=== PATIENT | male | born 1960 | race Caucasian/White ===

== ENCOUNTER 2016-06-18 07:35 | Emergency (ER) | payer OTHER ==
[~2016-06-18] VITALS: Ht 180.3 cm; Wt 105.0 kg
[~2016-06-18 07:35] MED LIST: ASPI325T PO; LISI-360 PO; PRAD150C PO; TOPR50TA PO
[2016-06-18 07:39] VITALS: BP 208/103; PULSE 82; RESP 16; TEMP 98; O2SAT 95
[2016-06-18] MEDS ORDERED: ASPI325T PO (07:48)
[2016-06-18] MEDS ORDERED: LOSA50TA PO (07:48)
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
[2016-06-18] MEDS ORDERED: cloNIDine HCL 0.2 MG TAB PO ONE (08:15)
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
[2016-06-18 08:55] VITALS: BP 147/69; PULSE 72; RESP 14; O2SAT 97
== END 2016-06-18 10:10 | disposition home or self-care (01) ==
LOC: NEPE 07:35
DX: S16.1XXA Strain of muscle, fascia and tendon at neck level, initial encounter (principal); S09.90XA Unspecified injury of head, initial encounter; I10 Essential (primary) hypertension; E78.00 Pure hypercholesterolemia, unspecified; Z87.39 Personal history of other diseases of the musculoskeletal system and connective tissue; Z86.79 Personal history of other diseases of the circulatory system; V89.2XXA Person injured in unspecified motor-vehicle accident, traffic, initial encounter
CPT/HCPCS: 72040; 99284; L0150

== ENCOUNTER 2017-02-03 17:08 | Inpatient (IN) | payer OTHER ==
[~2017-02-03] VITALS: Ht 182.9 cm; Wt 101.0 kg
[2017-02-03] VITALS (8 sets, daily range): BP systolic 140–205; BP diastolic 74–126; PULSE 76–140; RESP 18–22; TEMP 98.1–99.4; O2SAT 96–99
[~2017-02-03 17:08] MED LIST changes: -LISI-360 PO; +LOSA50TA PO; -PRAD150C PO; -TOPR50TA PO
[2017-02-03 17:42] LABS: AUTOMATED NEUTROPHIL # 4.8 TH/MM3 (1.8-7.7); BASOPHIL % 0.7 % (0.0-2.0); EOSINOPHIL # 0.1 TH/MM3 (0-0.4); EOSINOPHIL % 1.1 % (0.0-4.0); HEMATOCRIT 46.9 % (39.0-51.0); LYMPH % 20.8 % (9.0-44.0); LYMPHOCYTE # 1.5 TH/MM3 (1.0-4.8); MEAN CELL VOLUME 91.5 FL (80.0-100.0); MEAN CORPUSCULAR HGB CONC 36.1 % (32.0-36.0); MONO % 9.7 % (0.0-8.0); NEUT % 67.7 % (16.0-70.0); PLATELET COUNT 205 TH/MM3 (150-450); RED BLOOD COUNT 5.12 MIL/MM3 (4.50-5.90); RED CELL DISTRIBUTION WIDTH 13.2 % (11.6-17.2)
[2017-02-03] MEDS ORDERED: SODIUM CHLOR 0.9% 1000 ML INJ 1,000 ML IV SCH (17:42)
[2017-02-03 17:43] LABS: HEMO FLAGS DIFF FINAL
[2017-02-03] MEDS ORDERED: DILTIAZEM HCL 25 MG/5 ML VIAL IV ONE ×2 (17:45→18:30)
[2017-02-03] MEDS ORDERED: AMLO10TA2 PO (18:00)
[2017-02-03] MEDS ORDERED: DILTIAZEM INJ 125 MG in SODIUM CHLORIDE 0.9% INJ 100 ML IV PRN (18:00)
[2017-02-03 18:07] LABS: ANION GAP 6 MEQ/L (5-15); BICARBONATE 27.6 MEQ/L (21.0-32.0); BLOOD UREA NITROGEN 17 MG/DL (7-18); CHLORIDE 103 MEQ/L (98-107); GLOMERULAR FILTRATION RATE 85 ML/MIN (>89); POTASSIUM 3.9 MEQ/L (3.5-5.1); SODIUM (NA) 137 MEQ/L (136-145)
--- NOTE | 2017-02-03 18:19 | PD ---
HPI Chief Complaint: Cardiac Complaint Time Seen by Provider: 17:42 Travel History International Travel<30 days: No Contact w/Intl Traveler<30days: No Traveled to known affect area: No History of Present Illness HPI 56-year-old male that presents to the ED for evaluation of palpitations. Patient states that he has a history of atrial flutter and atrial fibrillation having had an ablation [address] Hernandez. Patient reports that today his been working outside a lot making a shed and she started to notice that he was having palpitations as well as feeling like his heart was racing. Per patient he does not feel anxious or has any pain. Per patient he does feel somewhat short of breath with exertion as well as a slight headache. He denies any history of heart disease other than the atrial fibrillation. 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 he follows up with. He denies any recent travel. Per patient his been outside all day and his been trying to keep hydrated but he believes that he might have gotten dehydrated. He does have a history of hypertension and takes amiodarone as well as losartan. Has no allergies to medication. Other medical issues. PFSH Past Medical History Atrial Fibrillation: Yes Blood Disorders: No Anxiety: No Depression: No Heart Rhythm Problems: Yes Cancer: No Cardiovascular Problems: Yes (ARRHYTHMIA) High Cholesterol: Yes Chemotherapy: No Chest Pain: No Congestive Heart Failure: No Diabetes: No Diminished Hearing: No Hypertension: Yes Immune Disorder: No Implanted Vascular Access Dvce: Yes Musculoskeletal: Yes Psychiatric: No Respiratory: No Past Surgical History Body Medical Devices: SCREWS IN KNEE Cardiac Surgery: Yes (ablation) Tonsillectomy: Yes Other Surgery: Yes Social History Alcohol Use: Yes (occasional) Tobacco Use: No Substance Use: No Allergies-Medications (Allergen,Severity, Reaction): Coded Allergies: No Known Allergies (Verified , 02/03/17) Reported Meds & Prescriptions Reported Meds & Active Scripts Active Reported Amlodipine (Amlodipine Besylate) 10 Mg Tab 10 Mg PO DAILY Aspirin 325 Mg Tab 325 Mg PO DAILY Losartan (Losartan Potassium) 50 Mg Tab 50 Mg PO DAILY Review of Systems Except as stated in HPI: all other systems reviewed are Neg Physical Exam Narrative GENERAL: SKIN: Warm and dry. HEAD: Atraumatic. Normocephalic. EYES: Pupils equal and round. No scleral icterus. No injection or drainage. ENT: No nasal bleeding or discharge. Mucous membranes pink and moist. Tongue is midline. No uvula deviation. NECK: Trachea midline. No JVD. CARDIOVASCULAR: Irregular rate and rhythm. No murmurs, S3, S4. RESPIRATORY: No accessory muscle use. Clear to auscultation. Breath sounds equal bilaterally. GASTROINTESTINAL: Abdomen soft, non-tender, nondistended. Hepatic and splenic margins not palpable. MUSCULOSKELETAL: Extremities without clubbing, cyanosis, or edema. No obvious deformities. Full range of motion of the upper and lower extremities bilaterally. 2+ pulses bilaterally. NEUROLOGICAL: Awake and alert. No obvious cranial nerve deficits. Motor grossly within normal limits. Five out of 5 muscle strength in the arms and legs. Normal speech. PSYCHIATRIC: Appropriate mood and affect; insight and judgment normal. Data Data Last Documented VS Vital Signs Date Time Temp Pulse Resp B/P (MAP) Pulse Ox O2 Delivery O2 Flow Rate FiO2 02/03/17 18:38 130 146/81 02/03/17 17:11 99.4 22 97 Orders Orders Electrocardiogram (02/03/17 17:11) Complete Blood Count With Diff (02/03/17 17:11) Basic Metabolic Panel (Bmp) (02/03/17 17:11) Ckmb (Isoenzyme) Profile (02/03/17 17:11) Troponin I (02/03/17 17:11) Diltiazem Inj (Cardizem Inj) (02/03/17 17:45) Sodium Chlor 0.9% 1000 Ml Inj (Ns 1000 M (02/03/17 17:42) Vital Signs (Adult) Q15MX4,Q4H (02/03/17 17:59) Pepper Cutter / Telemetry JAMAAL.Q8H (02/03/17 17:59) Cardiac Rhythm JAMAAL.Q8H (02/03/17 17:59) Notify Dr: Other (02/03/17 17:59) Diltiazem Inj (Cardizem Inj) (02/03/17 18:00) CKMB (02/03/17 17:20) CKMB% (02/03/17 17:20) Diltiazem Inj (Cardizem Inj) (02/03/17 18:30) Admit Order (Ed Use Only) (02/03/17 19:05) Consult Cardiology (02/03/17 ) Labs Laboratory Tests Test 02/03/17 17:20 White Blood Count 7.0 TH/MM3 Red Blood Count 5.12 MIL/MM3 Hemoglobin 16.9 GM/DL Hematocrit 46.9 % Mean Corpuscular Volume 91.5 FL Mean Corpuscular Hemoglobin 33.0 PG Mean Corpuscular Hemoglobin Concent 36.1 % Red Cell Distribution Width 13.2 % Platelet Count 205 TH/MM3 Mean Platelet Volume 9.3 FL Neutrophils (%) (Auto) 67.7 % Lymphocytes (%) (Auto) 20.8 % Monocytes (%) (Auto) 9.7 % Eosinophils (%) (Auto) 1.1 % Basophils (%) (Auto) 0.7 % Neutrophils # (Auto) 4.8 TH/MM3 Lymphocytes # (Auto) 1.5 TH/MM3 Monocytes # (Auto) 0.7 TH/MM3 Eosinophils # (Auto) 0.1 TH/MM3 Basophils # (Auto) 0.0 TH/MM3 CBC Comment DIFF FINAL Differential Comment Blood Urea Nitrogen 17 MG/DL Creatinine 0.92 MG/DL Random Glucose 128 MG/DL Calcium Level 8.9 MG/DL Sodium Level 137 MEQ/L Potassium Level 3.9 MEQ/L Chloride Level 103 MEQ/L Carbon Dioxide Level 27.6 MEQ/L Anion Gap 6 MEQ/L Estimat Glomerular Filtration Rate 85 ML/MIN Total Creatine Kinase 131 U/L Creatine Kinase MB 1.5 NG/ML Troponin I LESS THAN 0.02 NG/ML MDM Medical Decision Making Medical Screen Exam Complete: Yes Emergency Medical Condition: Yes Medical Record Reviewed: Yes Interpretation(s) EKG shows atrophy fibrillation in RVR read by me and attending. CBC & BMP Diagram 02/03/17 17:20 Calcium Level 8.9 Troponin and CK-MB negative. Differential Diagnosis atrial flutter versus atrial fibrillation versus tachycardia versus arrhythmia versus normal exam Narrative Course 56-year-old male that presents to the ED for evaluation of irregular heart rate. Patient was properly examined and was found to have signs and symptoms consistent appears to be atrial flutter as well as atrial fibrillation. Initially patient was very tachycardic in the 130s and 140s and 150s. He appeared to be more in atrial fibrillation. Patient was given 1 bolus of Cardizem and did stabilize his atrial fibrillation now staying in the 130s. No he appears to be in atrial flutter but his heart rate still very tachycardic. I discussed the case in my attending Dr. Barkley who is in agreement with plan. Cardizem drip was started. Patient was given IV. Labs showed no sign of acute disease. Patient will be admitted to for health care. Case was discussed with Dr. Brasher who agrees with admission to the [facility]. Procedures EKG Prior to Arrival: No Diagnosis Primary Impression: Atrial fibrillation with RVR Admitting Information Admitting Physician Requests: Admit Mango Hernandez Feb 03, 2017 18:19
[2017-02-03 18:23] LABS: CREATINE KINASE 131 U/L (39-308)
[2017-02-03 18:35] LABS: CKMB 1.5 NG/ML (0.5-3.6)
--- NOTE | 2017-02-03 19:35 | HHI.HP ---
HPI Service [facility] Hospitalists Primary Care Physician Itz Gonzalez, DO Admission Diagnosis atrial fibrillation in RVR Chief Complaint: rapid heart rate today after exertion Travel History International Travel<30 Days: No Contact w/Intl Traveler <30 Da: No Traveled to Known Affected Are: No History of Present Illness 56-year-old male that presents to the ED for evaluation of palpitations. Patient states that he has a history of atrial flutter and atrial fibrillation having had an ablation [address] Hernandez. Patient reports that today his been working outside a lot making a shed and she started to notice that he was having palpitations as well as feeling like his heart was racing. Per patient he does not feel anxious or has any pain. Per patient he does feel somewhat short of breath with exertion as well as a slight headache. He denies any history of heart disease other than the atrial fibrillation. Patient follows with [facility] cardiology. He denies any recent travel. Per patient his been outside all day and his been trying to keep hydrated but he believes that he might have gotten dehydrated. He does have a history of hypertension and takes amlodipine as well as losartan. Has no allergies to medication. In er found to be in rapid atrail fib started on IV cardiazem bolus and drip . [facility] Review of Systems Cardiovascular: COMPLAINS OF: Palpitations Past Family Social History Past Medical History hypertension,a fib,?lipid Past Surgical History knee, ablation Reported Medications losartan 100,amliodine 10 and was on asa 325 takes maybe once twice week Allergies: Coded Allergies: No Known Allergies (Verified , 02/03/17) Social History drinks beer and vodka on weekends Physical Exam Vital Signs Vital Signs Date Time Temp Pulse Resp B/P (MAP) Pulse Ox O2 Delivery O2 Flow Rate FiO2 02/03/17 18:38 130 146/81 02/03/17 17:11 99.4 140 22 189/118 (141) 97 Physical Exam GENERAL: This is a well-nourished, well-developed patient, in no apparent distress. SKIN: No rashes, ecchymoses or lesions. Cool and dry. HEAD: Atraumatic. Normocephalic. No temporal or scalp tenderness. EYES: Pupils equal round and reactive. Extraocular motions intact. No scleral icterus. No injection or drainage. ENT: Nose without bleeding, purulent drainage or septal hematoma. Throat without erythema, tonsillar hypertrophy or exudate. Uvula midline. Airway patent. NECK: Trachea midline. No JVD or lymphadenopathy. Supple, nontender, no meningeal signs. CARDIOVASCULAR:IRREG rate and rhythm without murmurs, gallops, or rubs. RESPIRATORY: Clear to auscultation. Breath sounds equal bilaterally. No wheezes , rales, or rhonchi. GASTROINTESTINAL: Abdomen soft, non-tender, nondistended. No hepato-splenomegaly , or palpable masses. No guarding. MUSCULOSKELETAL: Extremities without clubbing, cyanosis, or edema. No joint tenderness, effusion, or edema noted. No calf tenderness. Negative Homans sign bilaterally. NEUROLOGICAL: Awake and alert. Cranial nerves II through XII intact. Motor and sensory grossly within normal limits. Five out of 5 muscle strength in all muscle groups. Normal speech. Laboratory Laboratory Tests Test 02/03/17 17:20 White Blood Count 7.0 Red Blood Count 5.12 Hemoglobin 16.9 Hematocrit 46.9 Mean Corpuscular Volume 91.5 Mean Corpuscular Hemoglobin 33.0 Mean Corpuscular Hemoglobin Concent 36.1 Red Cell Distribution Width 13.2 Platelet Count 205 Mean Platelet Volume 9.3 Neutrophils (%) (Auto) 67.7 Lymphocytes (%) (Auto) 20.8 Monocytes (%) (Auto) 9.7 Eosinophils (%) (Auto) 1.1 Basophils (%) (Auto) 0.7 Neutrophils # (Auto) 4.8 Lymphocytes # (Auto) 1.5 Monocytes # (Auto) 0.7 Eosinophils # (Auto) 0.1 Basophils # (Auto) 0.0 CBC Comment DIFF FINAL Differential Comment Blood Urea Nitrogen 17 Creatinine 0.92 Random Glucose 128 Calcium Level 8.9 Sodium Level 137 Potassium Level 3.9 Chloride Level 103 Carbon Dioxide Level 27.6 Anion Gap 6 Estimat Glomerular Filtration Rate 85 Total Creatine Kinase 131 Creatine Kinase MB 1.5 Troponin I LESS THAN 0.02 Result Diagram: 02/03/17 1720 02/03/17 1720 Course ekg rapid atrail fib started on cardiazem bolus and drip Caprini VTE Risk Assessment Caprini VTE Risk Assessment: Mod/High Risk (score >= 2) Caprini Risk Assessment Model Point Value = 1 Point Value = 2 Point Value = 3 Point Value = 5 Age 41-60 Minor surgery BMI > 25 kg/m2 Swollen legs Varicose veins or History of unexplained or recurrent spontaneous Oral contraceptives or hormone replacement Sepsis (< 1 month) Serious lung disease, including pneumonia (< 1 month) Abnormal pulmonary function Acute myocardial infarction Congestive heart failure (< 1 month) History of inflammatory bowel disease Medical patient at bed rest Age 61-74 Arthroscopic surgery Major open surgery (> 45 min) Laparoscopic surgery (> 45 min) Malignancy Confined to bed (> 72 hours) Immobilizing plaster cast Central venous access Age >= 75 History of VTE Family history of VTE Factor V Leiden Prothrombin [id number] Lupus anticoagulant Anticardiolipin antibodies Elevated serum homocysteine Heparin-induced thrombocytopenia Other congenital or acquired thrombophilia Stroke (< 1 month) Elective arthroplasty Hip, pelvis, or leg fracture Acute spinal cord injury (< 1 month) Prophylaxis Regimen Total Risk Factor Score Risk Level Prophylaxis Regimen 0-1 Low Early ambulation 2 Moderate Order ONE of the following: *Sequential Compression Device (SCD) *Heparin 5000 units SQ BID 3-4 Higher Order ONE of the following medications: *Heparin 5000 units SQ TID *Enoxaparin/Lovenox 40 mg SQ daily (WT < 150 kg, CrCl > 30 mL/min) *Enoxaparin/Lovenox 30 mg SQ daily (WT < 150 kg, CrCl > 10-29 mL/min) *Enoxaparin/Lovenox 30 mg SQ BID (WT < 150 kg, CrCl > 30 mL/min) AND/OR *Sequential Compression Device (SCD) 5 or more Highest Order ONE of the following medications: *Heparin 5000 units SQ TID (Preferred with Epidurals) *Enoxaparin/Lovenox 40 mg SQ daily (WT < 150 kg, CrCl > 30 mL/min) *Enoxaparin/Lovenox 30 mg SQ daily (WT < 150 kg, CrCl > 10-29 mL/min) *Enoxaparin/Lovenox 30 mg SQ BID (WT < 150 kg, CrCl > 30 mL/min) AND *Sequential Compression Device (SCD) Assessment and Plan Problem List: (1) Atrial fibrillation with RVR ICD Codes: I48.91 - Unspecified atrial fibrillation Status: Acute Plan: cardiazem bolus and drip to cic consult cardiology (2) Hypertension ICD Codes: I10 - Essential (primary) hypertension Status: Chronic Plan: continue losartan and amlodipine Assessment and Plan further plan as case develops ,for now continue full asa Code Status full Discussed Condition With patient Physician Certification 2 Midnight Certification Type: Admission for Inpatient Services Order for Inpatient Services The services are ordered in accordance with Medicare regulations or non- Medicare payer requirements, as applicable. In the case of services not specified as inpatient-only, they are appropriately provided as inpatient services in accordance with the 2-midnight benchmark. Estimated LOS (days): 3 3 days is the estimated time the patient will need to remain in the hospital, assuming treatment plan goals are met and no additional complications. Post-Hospital Plan: Home Problem Qualifiers (1) Hypertension: Qualified Codes: I10 - Essential (primary) hypertension Ryan Brasher MD Feb 03, 2017 19:35
[2017-02-03] MEDS ORDERED: BISACODYL 10 MG SUPP RECTAL PRN (19:45)
[2017-02-03] MEDS ORDERED: SODIUM CHLORIDE 0.9% FLUSH 10 ML FLUSH IV FLUSH PRN (19:45)
[2017-02-03] MEDS ORDERED: SENNOSIDES 8.6 MG TAB PO PRN (19:45)
[2017-02-03] MEDS ORDERED: MAGNESIUM HYDROXIDE SUSP 30 ML CUP PO PRN (19:45)
[2017-02-03] MEDS ORDERED: TEMAZEPAM 15 MG CAP PO PRN (19:45)
[2017-02-03] MEDS ORDERED: LACTULOSE SYRUP 20 GM/30 ML CUP PO PRN (19:45)
[2017-02-03] MEDS ORDERED: NALOXONE HCL 0.4 MG/ML AMP IV PUSH PRN (19:45)
[2017-02-03] MEDS: LORazepam 0.5 MG TAB PO PRN (20:40)
[2017-02-03] MEDS ORDERED: testosterone TOPICAL (20:51)
[2017-02-03] MEDS ORDERED: ENALAPRILAT 1.25 MG/ML VIAL IV PUSH PRN (22:00)
[2017-02-03] MEDS ORDERED: DIGOXIN 0.5 MG/2 ML VIAL IV PUSH ONE (22:00)
[2017-02-03] MEDS: SODIUM CHLORIDE 0.9% FLUSH 10 ML FLUSH IV FLUSH SCH (22:18)
[2017-02-03] MEDS: ENOXAPARIN SODIUM 40 MG/0.4 ML SYRINGE SQ SCH (22:19)
[2017-02-03] MEDS: DOCUSATE SODIUM 50 MG/SENNA 8.6 MG TAB PO SCH (22:19)
--- NOTE | 2017-02-03 22:22 | RADRPT ---
EXAM DATE/TIME: 02/03/2017 22:09 [facility] COMPARISON: No previous studies available for comparison. INDICATIONS : Hypertension MEDICAL HISTORY : Hypertension. SURGICAL HISTORY : Cardiac ablation ENCOUNTER: Initial ACUITY: 1 day PAIN SCORE: 0/10 LOCATION: chest FINDINGS: A single view of the chest demonstrates the lungs to be symmetrically aerated without evidence of mas s, infiltrate or effusion. The cardiomediastinal contours are unremarkable. Osseous structures are intact. CONCLUSION: No acute disease. Itz Emerson MD on February 03, 2017 at 22:19 Board Certified Radiologist. This report was verified electronically.
[2017-02-03] MEDS ORDERED: LORazepam 2 MG/ML VIAL IV PUSH ONE (23:30)
[2017-02-04] VITALS (24 sets, daily range): BP systolic 123–160; BP diastolic 73–102; PULSE 77–112; RESP 16–18; TEMP 98.1–98.6; O2SAT 95–98
[2017-02-04 07:01] LABS: AUTOMATED NEUTROPHIL # 2.3 TH/MM3 (1.8-7.7); BASOPHIL % 0.6 % (0.0-2.0); EOSINOPHIL # 0.1 TH/MM3 (0-0.4); EOSINOPHIL % 1.8 % (0.0-4.0); HEMATOCRIT 45.1 % (39.0-51.0); HEMO FLAGS DIFF FINAL; LYMPH % 31.3 % (9.0-44.0); LYMPHOCYTE # 1.4 TH/MM3 (1.0-4.8); MEAN CELL VOLUME 92.2 FL (80.0-100.0); MEAN CORPUSCULAR HEMOGLOBIN 31.6 PG (27.0-34.0); MEAN CORPUSCULAR HGB CONC 34.3 % (32.0-36.0); MONO % 13.7 % (0.0-8.0); NEUT % 52.6 % (16.0-70.0); PLATELET COUNT 194 TH/MM3 (150-450); RED CELL DISTRIBUTION WIDTH 12.8 % (11.6-17.2); WHITE BLOOD COUNT 4.4 TH/MM3 (4.0-11.0)
[2017-02-04 07:34] LABS: ALT (GPT) 25 U/L (12-78); ANION GAP 8 MEQ/L (5-15); AST (GOT) 17 U/L (15-37); BICARBONATE 25.6 MEQ/L (21.0-32.0); BLOOD UREA NITROGEN 14 MG/DL (7-18); CHLORIDE 105 MEQ/L (98-107); GLOMERULAR FILTRATION RATE 131 ML/MIN (>89); POTASSIUM 3.5 MEQ/L (3.5-5.1); SODIUM (NA) 139 MEQ/L (136-145)
[2017-02-04 07:37] LABS: ALKALINE PHOSPHATASE 66 U/L (45-117); TOTAL BILIRUBIN ADULT 0.6 MG/DL (0.2-1.0)
--- NOTE | 2017-02-04 08:17 | PD.CONS ---
HPI Service CV Consult Requested By Reason for Consult a-fib Primary Care Physician Itz Gonzalez, DO History of Present Illness Here with h/o a-fib s/p ablation 2010. He was admitted for palpitations and tachycardia that started while working outside for 3.5 hours. He believes he may have been dehydrated. He has not had any further a-fib until yesterday. He says in the past he was sent for ablation because heart rate control medications lowered his blood pressure. He denies any chest pain or shortness of breath (Garcia Bush) Review of Systems Consitutional: DENIES: Fatigue, Fever, Chills, Weight gain, Weight loss Eyes: DENIES: Amaurosis Fugax, Change in vision Respiratory: DENIES: See HPI, Cough, Snoring, Shortness of breath, Wheezing, Sputum production Cardiovascular: COMPLAINS OF: Palpitations Gastrointestinal: DENIES: Nausea, Vomiting, Change in bowel habits, Reflux, Bloody stools, Melena Genitourinary: DENIES: Urinary incontinence, Difficulty voiding Integumentary: DENIES: Rash Neurologic: DENIES: Tingling or numbness, Memory problems, Poor Balance, Stroke symptoms Musculoskeletal: DENIES: Joint pain, Muscle pain, Limited range of motion, Back pain Psychiatric: DENIES: Anxiety, Depression, Sleep disturbances Hematologic: DENIES: Bruising tendencies, Bleeding tendencies Endocrine: DENIES: Weight gain, Weight loss, Thyroid disease (Garcia Bush ) Past Family Social History Allergies: Coded Allergies: No Known Allergies (Verified , 02/03/17) Past Medical History hypertension a fib Past Surgical History knee surgery ablation Reported Medications Reported Meds & Active Scripts Active Reported [testosterone] TOPICAL DAILY Amlodipine (Amlodipine Besylate) 10 Mg Tab 10 Mg PO DAILY Aspirin 325 Mg Tab 325 Mg PO DAILY Losartan (Losartan Potassium) 50 Mg Tab 50 Mg PO DAILY Active Ordered Medications Current Medications Medications (Trade) Dose Ordered Sig/Darryl Route Start Time Stop Time Status Last Admin Diltiazem HCl 125 mg/Sodium Chloride 125 ml @ 5 mls/hr TITRATE PRN IV 02/03/17 18:00 02/03/17 18:38 (Norvasc) 10 mg DAILY PO 02/04/17 09:00 (Aspirin) 325 mg DAILY PO 02/04/17 09:00 (Cozaar) 50 mg DAILY PO 02/04/17 09:00 (NS Flush) 2 ml UNSCH PRN IV FLUSH 02/03/17 19:45 (NS Flush) 2 ml BID IV FLUSH 02/03/17 21:00 02/03/17 22:18 (Tylenol) 650 mg Q4H PRN PO 02/03/17 19:45 (Restoril) 15 mg HS PRN PO 02/03/17 19:45 (Lovenox Inj) 40 mg Q24H SQ 02/03/17 21:00 02/03/17 22:19 (Narcan Inj) 0.4 mg UNSCH PRN IV PUSH 02/03/17 19:45 (Nesha-Colace) 1 tab BID PO 02/03/17 21:00 02/03/17 22:19 (Milk Of Magnesia Liq) 30 ml Q12H PRN PO 02/03/17 19:45 (Senokot) 17.2 mg Q12H PRN PO 02/03/17 19:45 (Dulcolax Supp) 10 mg DAILY PRN RECTAL 02/03/17 19:45 (Lactulose Liq) 30 ml DAILY PRN PO 02/03/17 19:45 (Ativan) 0.5 mg Q12H PRN PO 02/03/17 19:45 02/03/17 20:40 (Vasotec Inj) 1.25 mg Q6H PRN IV PUSH 02/03/17 22:00 02/03/17 22:18 (Pneumovax-23 Inj) 25 mcg ONCE ONCE IM 02/05/17 10:00 02/05/17 10:01 Family History noncontributory Social History Occasion EtOH denies smoking denies substance abuse (Garcia Bush) Physical Exam Vital Signs Vital Signs Date Time Temp Pulse Resp B/P (MAP) Pulse Ox O2 Delivery O2 Flow Rate FiO2 02/04/17 06:07 96 02/04/17 03:33 98.6 82 18 129/77 (94) 97 02/04/17 03:00 82 02/04/17 02:00 77 02/04/17 01:00 88 02/04/17 00:00 82 02/03/17 23:59 98.4 97 18 140/74 (96) 96 02/03/17 23:59 135 02/03/17 23:00 76 02/03/17 21:00 130 02/03/17 20:48 02/03/17 20:31 132 18 154/98 (116) 96 Room Air 02/03/17 20:10 133 18 166/105 (125) 99 Room Air 02/03/17 19:25 136 18 205/126 (152) 98 Room Air 02/03/17 18:38 130 146/81 02/03/17 17:11 99.4 140 22 189/118 (141) 97 02/03/17 09:30 98.1 131 18 161/101 (121) 96 02/03/17 09:30 131 Physical Exam GENERAL: Well-nourished, well-developed patient in no apparent distress. NECK: No JVD. No carotid bruit. CARDIOVASCULAR: IR IR S1/S2 no murmur, rub, or gallop. RESPIRATORY: No accessory muscle use. Clear to auscultation. Breath sounds equal bilaterally. GASTROINTESTINAL: Abdomen soft, non-tender, nondistended. MUSCULOSKELETAL: Extremities without clubbing, cyanosis, or edema. Laboratory Laboratory Tests Test 02/03/17 17:20 02/04/17 04:52 White Blood Count 7.0 4.4 Red Blood Count 5.12 4.90 Hemoglobin 16.9 15.5 Hematocrit 46.9 45.1 Mean Corpuscular Volume 91.5 92.2 Mean Corpuscular Hemoglobin 33.0 31.6 Mean Corpuscular Hemoglobin Concent 36.1 34.3 Red Cell Distribution Width 13.2 12.8 Platelet Count 205 194 Mean Platelet Volume 9.3 9.2 Neutrophils (%) (Auto) 67.7 52.6 Lymphocytes (%) (Auto) 20.8 31.3 Monocytes (%) (Auto) 9.7 13.7 Eosinophils (%) (Auto) 1.1 1.8 Basophils (%) (Auto) 0.7 0.6 Neutrophils # (Auto) 4.8 2.3 Lymphocytes # (Auto) 1.5 1.4 Monocytes # (Auto) 0.7 0.6 Eosinophils # (Auto) 0.1 0.1 Basophils # (Auto) 0.0 0.0 CBC Comment DIFF FINAL DIFF FINAL Differential Comment Blood Urea Nitrogen 17 14 Creatinine 0.92 0.63 Random Glucose 128 90 Calcium Level 8.9 9.1 Sodium Level 137 139 Potassium Level 3.9 3.5 Chloride Level 103 105 Carbon Dioxide Level 27.6 25.6 Anion Gap 6 8 Estimat Glomerular Filtration Rate 85 131 Total Creatine Kinase 131 Creatine Kinase MB 1.5 Troponin I LESS THAN 0.02 Total Protein 6.8 Albumin 3.6 Alkaline Phosphatase 66 Aspartate Amino Transf (AST/SGOT) 17 Alanine Aminotransferase (ALT/SGPT) 25 Total Bilirubin 0.6 (Garcia Bush) Result Diagram: 02/04/1745102/04/17451 Assessment and Plan Problem List: (1) Atrial fibrillation with RVR ICD Codes: I48.91 - Unspecified atrial fibrillation Status: Acute Assessment and Plan a-fib RVR - wean diltiazem gtt to off, stop amlodipine and start metoprolol 50 mg BID. His CHADS-VASC is 1. We will however discuss anticoagulation with him (Garcia Bush) Assessment and Plan recurrent afib secondary to increased adrenergic tone related to working hard in the yard. add BB wean cardizem gtt. follow BP add anticoagulant. CHADSVASC = 1 but low bleeding risk. may spontaneously convert and hopefully won't have recurrence if avoid trigger otherwise, can consider repeat ablation as outpatient. may only need anticoagulant for short time if converts to NSR hopeful DC planning for tomorrow (Carlos Crawford MD) Garcia Bush Feb 04, 2017 08:17 Carlos Crawford MD Feb 04, 2017 08:41
[2017-02-04] MEDS: METOPROLOL TARTRATE 50 MG TAB PO SCH ×2 (08:50→20:35)
[2017-02-04] MEDS: LOSARTAN 50 MG TAB PO SCH (08:50)
[2017-02-04] MEDS: DOCUSATE SODIUM 50 MG/SENNA 8.6 MG TAB PO SCH ×2 (08:51→20:35)
[2017-02-04] MEDS: SODIUM CHLORIDE 0.9% FLUSH 10 ML FLUSH IV FLUSH SCH ×2 (08:51→20:37)
[2017-02-04] MEDS: ASPIRIN 325 MG TAB PO SCH (08:51)
--- NOTE | 2017-02-04 12:38 | EKG ---
Date Performed: 02/03/2017 Time Performed: 17:18:14 PTAGE: 56 years EKG: ATRIAL FLUTTER WITH 2:1 RESPONSE RIGHT BUNDLE BRANCH BLOCK MARKED ST DEPRESSION, CONSIDER SUBENDOCARDIAL INJURY ABNORMAL ECG Compared to the PREVIOUS TRACING atrial flutter is now present PREVIOUS TRACIN01/30/2011 05.15 DOCTOR: Cliff Gao Interpretating Date/Time 02/04/2017 12:33:33
--- NOTE | 2017-02-04 17:31 | HHI.PR ---
Subjective Remarks Pts HR has been better controlled currently, he is being weaned off Cardizem, currently at 5mg and is on Metoprolol 50mg Q12H Objective Vitals Vital Signs Date Time Temp Pulse Resp B/P (MAP) Pulse Ox O2 Delivery O2 Flow Rate FiO2 02/04/17 16:00 94 02/04/17 16:00 98.4 88 16 135/82 (99) 98 02/04/17 16:00 94 02/04/17 15:00 96 02/04/17 15:00 96 02/04/17 14:00 92 02/04/17 14:00 92 02/04/17 13:00 84 02/04/17 13:00 84 02/04/17 12:00 87 02/04/17 12:00 87 02/04/17 12:00 98.1 77 16 123/77 (92) 97 02/04/17 11:00 82 02/04/17 11:00 82 02/04/17 10:00 102 02/04/17 10:00 76 127/77 02/04/17 10:00 102 02/04/17 09:00 108 02/04/17 09:00 108 02/04/17 08:00 87 02/04/17 08:00 98.3 112 16 151/102 (118) 95 02/04/17 08:00 87 02/04/17 07:00 88 02/04/17 07:00 88 02/04/17 06:07 96 02/04/17 03:33 98.6 82 18 129/77 (94) 97 02/04/17 03:00 82 02/04/17 02:00 77 02/04/17 01:00 88 02/04/17 00:00 82 02/03/17 23:59 98.4 97 18 140/74 (96) 96 02/03/17 23:59 135 02/03/17 23:00 76 02/03/17 21:00 130 02/03/17 20:48 02/03/17 20:31 132 18 154/98 (116) 96 Room Air 02/03/17 20:10 133 18 166/105 (125) 99 Room Air 02/03/17 19:25 136 18 205/126 (152) 98 Room Air 02/03/17 18:38 130 146/81 02/04/17 02/04/17 02/05/17 14:59 22:59 06:59 Intake Total 770 ml Output Total 650 ml Balance 120 ml Intake Oral 720 ml IV Total 50 ml Output Urine Total 650 ml # Voids 2 # Bowel Movements 1 Result Diagram: 02/04/17 0452 02/04/17 0452 Other Results Laboratory Tests Test 02/03/17 17:20 02/04/17 04:52 White Blood Count 7.0 TH/MM3 4.4 TH/MM3 Red Blood Count 5.12 MIL/MM3 4.90 MIL/MM3 Hemoglobin 16.9 GM/DL 15.5 GM/DL Hematocrit 46.9 % 45.1 % Mean Corpuscular Volume 91.5 FL 92.2 FL Mean Corpuscular Hemoglobin 33.0 PG 31.6 PG Mean Corpuscular Hemoglobin Concent 36.1 % 34.3 % Red Cell Distribution Width 13.2 % 12.8 % Platelet Count 205 TH/MM3 194 TH/MM3 Mean Platelet Volume 9.3 FL 9.2 FL Neutrophils (%) (Auto) 67.7 % 52.6 % Lymphocytes (%) (Auto) 20.8 % 31.3 % Monocytes (%) (Auto) 9.7 % 13.7 % Eosinophils (%) (Auto) 1.1 % 1.8 % Basophils (%) (Auto) 0.7 % 0.6 % Neutrophils # (Auto) 4.8 TH/MM3 2.3 TH/MM3 Lymphocytes # (Auto) 1.5 TH/MM3 1.4 TH/MM3 Monocytes # (Auto) 0.7 TH/MM3 0.6 TH/MM3 Eosinophils # (Auto) 0.1 TH/MM3 0.1 TH/MM3 Basophils # (Auto) 0.0 TH/MM3 0.0 TH/MM3 CBC Comment DIFF FINAL DIFF FINAL Differential Comment Blood Urea Nitrogen 17 MG/DL 14 MG/DL Creatinine 0.92 MG/DL 0.63 MG/DL Random Glucose 128 MG/DL 90 MG/DL Calcium Level 8.9 MG/DL 9.1 MG/DL Sodium Level 137 MEQ/L 139 MEQ/L Potassium Level 3.9 MEQ/L 3.5 MEQ/L Chloride Level 103 MEQ/L 105 MEQ/L Carbon Dioxide Level 27.6 MEQ/L 25.6 MEQ/L Anion Gap 6 MEQ/L 8 MEQ/L Estimat Glomerular Filtration Rate 85 ML/MIN 131 ML/MIN Total Creatine Kinase 131 U/L Creatine Kinase MB 1.5 NG/ML Troponin I LESS THAN 0.02 NG/ML Total Protein 6.8 GM/DL Albumin 3.6 GM/DL Alkaline Phosphatase 66 U/L Aspartate Amino Transf (AST/SGOT) 17 U/L Alanine Aminotransferase (ALT/SGPT) 25 U/L Total Bilirubin 0.6 MG/DL Imaging Last Impressions Chest X-Ray 02/03/17 0000 Signed Impressions: Service Date/Time: Friday, February 03, 2017 22:09 - CONCLUSION: No acute disease. Itz Emerson MD Objective Remarks General: NAD, AAOx3 Chest: CTA Cardiac: Irregular Abd: +BS, soft ND/NT Ext: No edema A/P Problem List: (1) Atrial fibrillation with RVR ICD Codes: I48.91 - Unspecified atrial fibrillation Status: Acute Plan: - Pt is a 56 y/o male with hx of atrial flutter and atrial fibrillation having had an [place] [address] Camarena. - Patient presented to the ED on 02/03/17 with complaints of palpitations, mild SOB and a slight headache. He had been working outside that day making a shed and he started to notice that he was having palpitations. In the ED he was found to be in rapid atrial fib and was started on IV Cardizem bolus and drip - Cardiology was consulted - Pt was started on Metoprolol 50mg Q12H - He has had some slow A. fib today with HR into the 50's - Case was discussed between Dr. Lopez and Dr. Crawford and it was recommended that the Cardizem gtt be stopped and continue on the Metoprolol - Continue to monitor HR on Telemetry - Cozaar was continued - Norvasc was stopped - Supportive care - DVT prophylaxis with SCDs (2) Hypertension ICD Codes: I10 - Essential (primary) hypertension Status: Chronic Plan: - See above. Assessment and Plan Patient examined. Assessment and plan formulated with Nasra Palomo PA-C. I agree with the above. Problem Qualifiers (1) Hypertension: Qualified Codes: I10 - Essential (primary) hypertension Nasra Palomo Feb 04, 2017 17:31 Williams Lopez DO Feb 09, 2017 23:35
[2017-02-04] MEDS: ENOXAPARIN SODIUM 40 MG/0.4 ML SYRINGE SQ SCH (20:35)
[2017-02-05] VITALS (29 sets, daily range): BP systolic 119–158; BP diastolic 62–97; PULSE 82–128; RESP 14–18; TEMP 97.5–98.4; O2SAT 96–98
[2017-02-05] MEDS: LOSARTAN 50 MG TAB PO SCH (08:16)
[2017-02-05] MEDS: METOPROLOL TARTRATE 50 MG TAB PO SCH (08:16)
[2017-02-05] MEDS: DOCUSATE SODIUM 50 MG/SENNA 8.6 MG TAB PO SCH ×2 (08:17→21:43)
[2017-02-05] MEDS: ASPIRIN 325 MG TAB PO SCH (08:17)
[2017-02-05] MEDS: SODIUM CHLORIDE 0.9% FLUSH 10 ML FLUSH IV FLUSH SCH ×2 (08:18→21:00)
--- NOTE | 2017-02-05 09:17 | HHI.PR ---
Subjective Remarks Pt still in A. fib RVR with HR in the 120's Objective Vitals Vital Signs Date Time Temp Pulse Resp B/P (MAP) Pulse Ox O2 Delivery O2 Flow Rate FiO2 02/05/17 08:04 120 02/05/17 08:02 120 02/05/17 08:01 98.1 104 15 145/97 (113) 96 02/05/17 07:33 120 02/05/17 06:22 98.2 97 16 158/97 (117) 98 02/05/17 06:00 104 02/05/17 05:00 102 02/05/17 04:00 100 02/05/17 03:00 90 02/05/17 02:00 96 02/05/17 01:00 96 02/05/17 00:40 98.4 83 16 119/62 (81) 98 02/05/17 00:00 100 02/04/17 23:00 105 02/04/17 22:00 96 02/04/17 21:00 110 02/04/17 20:40 98.4 102 16 160/73 (102) 98 02/04/17 20:00 108 02/04/17 19:00 99 02/04/17 18:00 96 02/04/17 18:00 96 02/04/17 17:00 92 02/04/17 17:00 92 02/04/17 16:00 94 02/04/17 16:00 98.4 88 16 135/82 (99) 98 02/04/17 16:00 94 02/04/17 15:00 96 02/04/17 15:00 96 02/04/17 14:00 92 02/04/17 14:00 92 02/04/17 13:00 84 02/04/17 13:00 84 02/04/17 12:00 87 02/04/17 12:00 87 02/04/17 12:00 98.1 77 16 123/77 (92) 97 02/04/17 11:00 82 02/04/17 11:00 82 02/04/17 10:00 102 02/04/17 10:00 76 127/77 02/04/17 10:00 102 Result Diagram: 02/04/17 0452 02/04/17 0452 Other Results Laboratory Tests Test 02/03/17 17:20 02/04/17 04:52 White Blood Count 7.0 TH/MM3 4.4 TH/MM3 Red Blood Count 5.12 MIL/MM3 4.90 MIL/MM3 Hemoglobin 16.9 GM/DL 15.5 GM/DL Hematocrit 46.9 % 45.1 % Mean Corpuscular Volume 91.5 FL 92.2 FL Mean Corpuscular Hemoglobin 33.0 PG 31.6 PG Mean Corpuscular Hemoglobin Concent 36.1 % 34.3 % Red Cell Distribution Width 13.2 % 12.8 % Platelet Count 205 TH/MM3 194 TH/MM3 Mean Platelet Volume 9.3 FL 9.2 FL Neutrophils (%) (Auto) 67.7 % 52.6 % Lymphocytes (%) (Auto) 20.8 % 31.3 % Monocytes (%) (Auto) 9.7 % 13.7 % Eosinophils (%) (Auto) 1.1 % 1.8 % Basophils (%) (Auto) 0.7 % 0.6 % Neutrophils # (Auto) 4.8 TH/MM3 2.3 TH/MM3 Lymphocytes # (Auto) 1.5 TH/MM3 1.4 TH/MM3 Monocytes # (Auto) 0.7 TH/MM3 0.6 TH/MM3 Eosinophils # (Auto) 0.1 TH/MM3 0.1 TH/MM3 Basophils # (Auto) 0.0 TH/MM3 0.0 TH/MM3 CBC Comment DIFF FINAL DIFF FINAL Differential Comment Blood Urea Nitrogen 17 MG/DL 14 MG/DL Creatinine 0.92 MG/DL 0.63 MG/DL Random Glucose 128 MG/DL 90 MG/DL Calcium Level 8.9 MG/DL 9.1 MG/DL Sodium Level 137 MEQ/L 139 MEQ/L Potassium Level 3.9 MEQ/L 3.5 MEQ/L Chloride Level 103 MEQ/L 105 MEQ/L Carbon Dioxide Level 27.6 MEQ/L 25.6 MEQ/L Anion Gap 6 MEQ/L 8 MEQ/L Estimat Glomerular Filtration Rate 85 ML/MIN 131 ML/MIN Total Creatine Kinase 131 U/L Creatine Kinase MB 1.5 NG/ML Troponin I LESS THAN 0.02 NG/ML Total Protein 6.8 GM/DL Albumin 3.6 GM/DL Alkaline Phosphatase 66 U/L Aspartate Amino Transf (AST/SGOT) 17 U/L Alanine Aminotransferase (ALT/SGPT) 25 U/L Total Bilirubin 0.6 MG/DL Imaging Last Impressions Chest X-Ray 02/03/17 0000 Signed Impressions: Service Date/Time: Friday, February 03, 2017 22:09 - CONCLUSION: No acute disease. Itz Emerson MD Objective Remarks General: NAD, AAOx3 Chest: CTA Cardiac: Irregular, tachy Abd: +BS, soft ND/NT Ext: No edema A/P Problem List: (1) Atrial fibrillation with RVR ICD Codes: I48.91 - Unspecified atrial fibrillation Status: Acute Plan: - Pt is a 56 y/o male with hx of atrial flutter and atrial fibrillation having had an [place] [address] Camarena. - Patient presented to the ED on 02/03/17 with complaints of palpitations, mild SOB and a slight headache. He had been working outside that day making a shed and he started to notice that he was having palpitations. In the ED he was found to be in rapid atrial fib and was started on IV Cardizem bolus and drip - Cardiology was consulted - Pt was started on Metoprolol 50mg Q12H - He has had some slow A. fib today with HR into the 50's - Case was discussed between Dr. Lopez and Dr. Crawford on 02/04 and it was recommended that the Cardizem gtt be stopped and continue on the Metoprolol - Today pts A. fib RVR with HR into the 120's on telemetry - Increase Metoprolol to 75mg Q12H - Continue to monitor HR on Telemetry - Cozaar was continued, BP stable this morning. - Norvasc was stopped - Supportive care - DVT prophylaxis with SCDs (2) Hypertension ICD Codes: I10 - Essential (primary) hypertension Status: Chronic Plan: - See above. Assessment and Plan Patient examined. Assessment and plan formulated with Nasra Palomo PA-C. I agree with the above. Problem Qualifiers (1) Hypertension: Qualified Codes: I10 - Essential (primary) hypertension Nasra Palomo Feb 05, 2017 09:17 Williams Lopez DO Feb 09, 2017 23:36
[2017-02-05] MEDS ORDERED: PNEUMOCOCCAL POLYVALENT INJ 25 MCG/0.5 ML SYR IM ONE (10:00)
[2017-02-05] MEDS ORDERED: METOPROLOL TARTRATE 25 MG TAB PO ONE (10:00)
[2017-02-05] MEDS ORDERED: AMIODARONE INJ 150 MG in DEXTROSE 5% IN WATER 100ML INJ 97 ML IV ONE ×2 (12:10)
--- NOTE | 2017-02-05 12:13 | PD.CARD.PN ---
Subjective Subjective Remarks no complaints still tachycardiac Objective Medications Active Medications Metoprolol Tartrate (Lopressor) 25 mg ONCE ONCE PO Last administered on 11:15; Admin Dose 25 MG; Start 02/05/17 at 10:00; Stop 02/05/17 at 10:01 ; Status DC Metoprolol Tartrate (Lopressor) 75 mg Q12HR PO; Start 02/05/17 at 21:00 Pneumococcal Polyvalent Vaccine (Pneumovax-23 Inj) 25 mcg ONCE ONCE IM Last administered on 02/05/17 11:19; Admin Dose 25 MCG; Start 02/05/17 at 10:00; Stop 02/05/17 at 10:01; Status DC Vital Signs / I&O Vital Signs Date Time Temp Pulse Resp B/P (MAP) Pulse Ox O2 Delivery O2 Flow Rate FiO2 02/05/17 08:04 120 02/05/17 08:02 120 02/05/17 08:01 98.1 104 15 145/97 (113) 96 02/05/17 07:33 120 02/05/17 06:22 98.2 97 16 158/97 (117) 98 02/05/17 06:00 104 02/05/17 05:00 102 02/05/17 04:00 100 02/05/17 03:00 90 02/05/17 02:00 96 02/05/17 01:00 96 02/05/17 00:40 98.4 83 16 119/62 (81) 98 02/05/17 00:00 100 02/04/17 23:00 105 02/04/17 22:00 96 02/04/17 21:00 110 02/04/17 20:40 98.4 102 16 160/73 (102) 98 02/04/17 20:00 108 02/04/17 19:00 99 02/04/17 18:00 96 02/04/17 18:00 96 02/04/17 17:00 92 02/04/17 17:00 92 02/04/17 16:00 94 02/04/17 16:00 98.4 88 16 135/82 (99) 98 02/04/17 16:00 94 02/04/17 15:00 96 02/04/17 15:00 96 02/04/17 14:00 92 02/04/17 14:00 92 02/04/17 13:00 84 02/04/17 13:00 84 I/O 02/04/17 02/04/17 02/04/17 02/05/17 02/05/17 02/05/17 07:00 15:00 23:00 07:00 15:00 23:00 Intake Total 339.4 ml 770 ml 240 ml Output Total 1000 ml 650 ml Balance -660.6 ml 120 ml 240 ml Intake Oral 240 ml 720 ml 240 ml IV Total 99.4 ml 50 ml Output Urine Total 1000 ml 650 ml # Voids 2 4 # Bowel Movements 1 Physical Exam GENERAL: SKIN: Warm and dry. HEAD: Normocephalic. EYES: No scleral icterus. No injection or drainage. NECK: Supple, trachea midline. No JVD or lymphadenopathy. CARDIOVASCULAR: IR IR RESPIRATORY: Breath sounds equal bilaterally. No accessory muscle use. GASTROINTESTINAL: Abdomen soft, non-tender, nondistended. MUSCULOSKELETAL: No cyanosis, or edema. BACK: Nontender without obvious deformity. No CVA tenderness. Assessment and Plan Problem List: (1) Atrial fibrillation with RVR ICD Codes: I48.91 - Unspecified atrial fibrillation Status: Acute Assessment and Plan recurrent afib secondary to increased adrenergic tone related to working hard in the yard. add anticoagulant. CHADSVASC = 1 but low bleeding risk. add amio gtt if does convert, BUCK/DCC tomorrow. Carlos Cheng MD Feb 05, 2017 12:13
[2017-02-05] MEDS ORDERED: SODIUM CHLORIDE 0.9% FLUSH 10 ML FLUSH IVF PRN (12:15)
--- NOTE | 2017-02-05 12:58 | ECHRPT ---
Indication: Atrial fib CONCLUSIONS The left ventricular systolic function is normal with an estimated ejection fraction in the range of 55-60%. Normal left ventricular size. Wall thickness is measured at the upper limits of normal. No regional wall motion abnormalities are present. The left atrial size is mildly dilated. Trace mitral valve regurgitation. Diffuse calcification of the aortic valve. There is trace tricuspid valve regurgitation. The estimated pulmonary arterial pressure is 25.7 mmHg. Trivial pulmonary valve regurgitation. BP: 151 / 102 HR: 87 Rhythm: Atrial fibrillation MEASUREMENTS (Male / Female) Normal Values Technical Quality:Fair 2D ECHO LV Diastolic Diameter PLAX 5.0 cm 4.2 - 5.9 / 3.9 - 5.3 cm LV Systolic Diameter PLAX 3.3 cm IVS Diastolic Thickness 1.2 cm 0.6 - 1.0 / 0.6 - 0.9 cm LVPW Diastolic Thickness 1.1 cm 0.6 - 1.0 / 0.6 - 0.9 cm LV Relative Wall Thickness 0.5 RV Internal Dim ED PLAX 2.0 cm LVOT Diameter 2.0 cm LA Systolic Diameter LX 4.4 cm 3.0 - 4.0 / 2.7 - 3.8 cm LV Ejection Fraction MOD 4C 52.7 % LV Cardiac Index MOD 4C 1843.3 cm/minm LV Ejection Fraction 4C AL 57.1 % LV Cardiac Index 4C AL 2102.5 cm/minm M-MODE Aortic Root Diameter MM 3.3 cm AV Cusp Separation MM 1.4 cm DOPPLER AV Peak Velocity 136.0 cm/s AV Peak Gradient 7.4 mmHg LVOT Peak Velocity 120.0 cm/s LVOT Peak Gradient 5.8 mmHg AV Area Cont Eq pk 2.8 cm MV Area PHT 4.2 cm LV E' Lateral Velocity 9.0 cm/s LV E' Septal Velocity 7.2 cm/s TR Peak Velocity 198.0 cm/s TR Peak Gradient 15.7 mmHg Right Atrial Pressure 10.0 mmHg Pulmonary Artery Systolic Pressu 25.7 mmHg Right Ventricular Systolic Press 25.7 mmHg PV Peak Velocity 159.0 cm/s PV Peak Gradient 10.1 mmHg FINDINGS LEFT VENTRICLE The left ventricular systolic function is normal with an estimated ejection fraction in the range of 55-60%. Normal left ventricular size. Wall thickness is measured at the upper limits of normal. No regional wall motion abnormalities are present. RIGHT VENTRICLE Normal right ventricular size and systolic function. LEFT ATRIUM The left atrial size is mildly dilated. RIGHT ATRIUM The right atrial size is normal. ATRIAL SEPTUM Normal atrial septal thickness without atrial level shunting by limited color doppler interrogation. AORTA The aortic root and proximal ascending aorta are normal in size on limited imaging. MITRAL VALVE Trace mitral valve regurgitation. AORTIC VALVE Diffuse calcification of the aortic valve. TRICUSPID VALVE There is trace tricuspid valve regurgitation. The estimated pulmonary arterial pressure is 25.7 mmHg. PULMONARY VALVE Trivial pulmonary valve regurgitation. VESSELS The inferior vena cava is normal in size. PERICARDIUM No pericardial effusion. Carlos Crawford MD, FACC (Electronically Signed) Final Date:05 February 2017 12:57
[2017-02-05] MEDS: RIVAROXABAN 20 MG TAB PO SCH (15:08)
[2017-02-05] MEDS: AMIODARONE INJ 450 MG in DEXTROSE 5% IN WATE(EXCEL) INJ 241 ML IV SCH ×4 (15:10→20:00)
[2017-02-05] MEDS: METOPROLOL TARTRATE 25 MG TAB PO SCH (21:43)
[2017-02-06] VITALS (27 sets, daily range): BP systolic 116–142; BP diastolic 78–99; PULSE 50–128; RESP 18–20; TEMP 98–98.6; O2SAT 96–99
[2017-02-06] MEDS: ACETAMINOPHEN 325 MG TAB PO PRN ×2 (03:06→21:39)
[2017-02-06] MEDS: AMIODARONE INJ 450 MG in DEXTROSE 5% IN WATE(EXCEL) INJ 241 ML IV SCH ×6 (03:35→14:54)
--- NOTE | 2017-02-06 07:33 | HHI.PR ---
Subjective Remarks doing ok. still feels the palpitations Objective Vitals heart irreg lung cta abd s/nt ext no edema Vital Signs Date Time Temp Pulse Resp B/P (MAP) Pulse Ox O2 Delivery O2 Flow Rate FiO2 02/06/17 06:00 91 02/06/17 05:00 92 02/06/17 04:01 98.1 103 18 135/80 (98) 98 02/06/17 04:00 106 02/06/17 03:35 103 135/80 02/06/17 03:00 107 02/06/17 02:00 96 02/06/17 01:00 91 02/06/17 00:00 82 02/06/17 00:00 89 02/06/17 00:00 98.0 91 18 142/99 (113) 98 02/05/17 23:00 89 02/05/17 22:00 94 02/05/17 20:00 86 155/95 02/05/17 20:00 97.5 99 18 155/95 (115) 98 02/05/17 20:00 114 02/05/17 19:00 122 02/05/17 16:00 97 02/05/17 16:00 97 02/05/17 16:00 98.0 82 18 126/74 (91) 96 02/05/17 15:58 82 121/83 02/05/17 15:10 84 18 121/84 (96) 02/05/17 15:10 85 121/84 02/05/17 15:00 108 02/05/17 15:00 116 02/05/17 14:00 104 02/05/17 13:00 118 02/05/17 12:27 98.0 88 14 142/87 (105) 96 02/05/17 12:23 98 02/05/17 12:22 98 02/05/17 11:00 108 02/05/17 11:00 112 02/05/17 10:00 110 02/05/17 09:00 128 02/05/17 08:04 120 02/05/17 08:02 120 02/05/17 08:01 98.1 104 15 145/97 (113) 96 02/05/17 07:33 120 Result Diagram: 02/04/17 0452 02/04/17 0452 Imaging Last Impressions Chest X-Ray 02/03/17 0000 Signed Impressions: Service Date/Time: Friday, February 03, 2017 22:09 - CONCLUSION: No acute disease. Itz Emerson MD A/P Problem List: (1) Atrial fibrillation with RVR ICD Codes: I48.91 - Unspecified atrial fibrillation Status: Acute Plan: - Pt is a 56 y/o male with hx of atrial flutter and atrial fibrillation having had an [place] [address] Camarena. - Patient presented to the ED on 02/03/17 with complaints of palpitations, mild SOB and a slight headache. He had been working outside that day making a shed and he started to notice that he was having palpitations. In the ED he was found to be in rapid atrial fib and was started on IV Cardizem bolus and drip - Cardiology was consulted - Pt was started on Metoprolol 50mg Q12H - He has had some slow A. fib with HR into the 50's - Case was discussed between Dr. Lopez and Dr. Crawford on 02/04 and it was recommended that the Cardizem gtt be stopped and continue on the Metoprolol - Increased Metoprolol to 75mg Q12H - Dr Crawford initiated amiodarone protocol on 02/05 today pt still have afib/rvr he is npo and plan is for BUCK/cardioversion. he was started on xarelto yesterday. maria isabel added for bp (2) Hypertension ICD Codes: I10 - Essential (primary) hypertension Status: Chronic Plan: - See above. Problem Qualifiers (1) Hypertension: Qualified Codes: I10 - Essential (primary) hypertension Dionte Lou MD Feb 06, 2017 07:33
--- NOTE | 2017-02-06 08:17 | PD.CARD.PN ---
Subjective Subjective Remarks still afib RVR no complaints Objective Medications Active Medications Amiodarone HCl 150 mg/Dextrose 100 ml @ 100 mls/hr Q1H ONCE IV Last administered on 02/05/17 15:58; Admin Dose 100 MLS/HR; Start 02/05/17 at 12: 10; Stop 02/05/17 at 13:53; Status DC Amiodarone HCl 450 mg/Dextrose 250 ml @ 33 mls/hr Q7H35M IV Last administered on 02/06/17 03:35; Admin Dose 33 MLS/HR; Start 02/05/17 at 12:25 Metoprolol Tartrate (Lopressor) 25 mg ONCE ONCE PO Last administered on 11:15; Admin Dose 25 MG; Start 02/05/17 at 10:00; Stop 02/05/17 at 10:01 ; Status DC Metoprolol Tartrate (Lopressor) 75 mg Q12HR PO Last administered on 02/05/17 21:43; Admin Dose 75 MG; Start 02/05/17 at 21:00 Pneumococcal Polyvalent Vaccine (Pneumovax-23 Inj) 25 mcg ONCE ONCE IM Last administered on 02/05/17 11:19; Admin Dose 25 MCG; Start 02/05/17 at 10:00; Stop 02/05/17 at 10:01; Status DC Rivaroxaban (Xarelto) 20 mg DAILY PO Last administered on 02/05/17 15:08; Admin Dose 20 MG; Start 02/05/17 at 14:30 Sodium Chloride (NS Flush) 2 ml UNSCH PRN IVF; Start 02/05/17 at 12:15 Vital Signs / I&O Vital Signs Date Time Temp Pulse Resp B/P (MAP) Pulse Ox O2 Delivery O2 Flow Rate FiO2 02/06/17 08:08 98.6 97 19 116/88 (97) 97 02/06/17 08:00 101 02/06/17 07:00 107 02/06/17 06:00 91 02/06/17 05:00 92 02/06/17 04:01 98.1 103 18 135/80 (98) 98 02/06/17 04:00 106 02/06/17 03:35 103 135/80 02/06/17 03:00 107 02/06/17 02:00 96 02/06/17 01:00 91 02/06/17 00:00 82 02/06/17 00:00 89 02/06/17 00:00 98.0 91 18 142/99 (113) 98 02/05/17 23:00 89 02/05/17 22:00 94 02/05/17 20:00 86 155/95 02/05/17 20:00 97.5 99 18 155/95 (115) 98 02/05/17 20:00 114 02/05/17 19:00 122 02/05/17 16:00 97 02/05/17 16:00 97 02/05/17 16:00 98.0 82 18 126/74 (91) 96 02/05/17 15:58 82 121/83 02/05/17 15:10 84 18 121/84 (96) 02/05/17 15:10 85 121/84 02/05/17 15:00 108 02/05/17 15:00 116 02/05/17 14:00 104 02/05/17 13:00 118 02/05/17 12:27 98.0 88 14 142/87 (105) 96 02/05/17 12:23 98 02/05/17 12:22 98 02/05/17 11:00 108 02/05/17 11:00 112 02/05/17 10:00 110 02/05/17 09:00 128 I/O 02/05/17 02/05/17 02/05/17 02/06/17 02/06/17 02/06/17 07:00 15:00 23:00 07:00 15:00 23:00 Intake Total 240 ml 600 ml 400 ml Balance 240 ml 600 ml 400 ml Intake Oral 240 ml 500 ml 400 ml IV Total 100 ml # Voids 4 4 3 Physical Exam GENERAL: SKIN: Warm and dry. HEAD: Normocephalic. EYES: No scleral icterus. No injection or drainage. NECK: Supple, trachea midline. No JVD or lymphadenopathy. CARDIOVASCULAR: IR IR RESPIRATORY: Breath sounds equal bilaterally. No accessory muscle use. GASTROINTESTINAL: Abdomen soft, non-tender, nondistended. MUSCULOSKELETAL: No cyanosis, or edema. BACK: Nontender without obvious deformity. No CVA tenderness. Assessment and Plan Problem List: (1) Atrial fibrillation with RVR ICD Codes: I48.91 - Unspecified atrial fibrillation Status: Acute Assessment and Plan BUCK DCC noon hopeful DC later today anticoagulation x 1 mo if no recurrence, outpatient event monitor to confirm, and then can switch to asa 325 given CHADSVASC 1 cont BB Carlos Crawford MD Feb 06, 2017 08:17
[2017-02-06] MEDS ORDERED: SODIUM CHLORID 0.9% 500 ML INJ 500 ML IV SCH (08:30)
[2017-02-06] MEDS: SODIUM CHLORIDE 0.9% FLUSH 10 ML FLUSH IV FLUSH SCH ×2 (09:00→10:01)
[2017-02-06] MEDS: DOCUSATE SODIUM 50 MG/SENNA 8.6 MG TAB PO SCH ×2 (10:00→21:00)
[2017-02-06] MEDS: LOSARTAN 50 MG TAB PO SCH (10:00)
[2017-02-06] MEDS: METOPROLOL TARTRATE 25 MG TAB PO SCH (10:00)
[2017-02-06] MEDS: RIVAROXABAN 20 MG TAB PO SCH (10:01)
[2017-02-06] MEDS ORDERED: MISCELLANEOUS NURSING INFORMATION XX PRN (13:30)
[2017-02-06] MEDS ORDERED: METOPROLOL TARTRATE 100 MG TAB PO SCH (21:00)
[2017-02-06] MEDS: LORazepam 0.5 MG TAB PO PRN (21:40)
[2017-02-07] VITALS (9 sets, daily range): BP systolic 111–150; BP diastolic 67–81; PULSE 50–66; RESP 17–18; TEMP 97.8–98.2; O2SAT 98
[2017-02-07 05:31] LABS: BICARBONATE 29.1 MEQ/L (21.0-32.0); MAGNESIUM 2.1 MG/DL (1.5-2.5); POTASSIUM 3.6 MEQ/L (3.5-5.1)
--- NOTE | 2017-02-07 07:44 | PD.CARD.PN ---
Subjective Subjective Remarks converted to NSR asymptomatic left arm red due to flu shot Objective Medications Current Medications Medications (Trade) Dose Ordered Sig/Darryl Route Start Time Stop Time Status Last Admin (Cozaar) 50 mg DAILY PO 02/04/17 09:00 02/06/17 10:00 (Tylenol) 650 mg Q4H PRN PO 02/03/17 19:45 02/06/17 21:39 (Restoril) 15 mg HS PRN PO 02/03/17 19:45 (Narcan Inj) 0.4 mg UNSCH PRN IV PUSH 02/03/17 19:45 (Nesha-Colace) 1 tab BID PO 02/03/17 21:00 02/06/17 10:00 (Milk Of Magnesia Liq) 30 ml Q12H PRN PO 02/03/17 19:45 (Senokot) 17.2 mg Q12H PRN PO 02/03/17 19:45 (Dulcolax Supp) 10 mg DAILY PRN RECTAL 02/03/17 19:45 (Lactulose Liq) 30 ml DAILY PRN PO 02/03/17 19:45 (Ativan) 0.5 mg Q12H PRN PO 02/03/17 19:45 02/06/17 21:40 (Vasotec Inj) 1.25 mg Q6H PRN IV PUSH 02/03/17 22:00 02/03/17 22:18 (Xarelto) 20 mg DAILY PO 02/05/17 14:30 02/06/17 10:01 (Lopressor) 100 mg Q12HR PO 02/06/17 21:00 02/06/17 21:39 Miscellaneous Information 1 UNSCH PRN XX 02/06/17 13:30 02/09/17 13:29 Vital Signs / I&O Vital Signs Date Time Temp Pulse Resp B/P (MAP) Pulse Ox O2 Delivery O2 Flow Rate FiO2 02/07/17 06:00 56 02/07/17 05:00 65 02/07/17 04:00 97.8 66 18 122/78 (93) 98 02/07/17 04:00 52 02/07/17 03:00 50 02/07/17 02:00 50 02/07/17 01:00 51 02/07/17 00:00 98.2 51 18 111/67 (82) 98 02/07/17 00:00 51 02/06/17 23:00 50 02/06/17 22:00 86 02/06/17 21:00 83 02/06/17 20:00 108 02/06/17 20:00 98.3 99 18 142/78 (99) 99 02/06/17 19:00 106 02/06/17 18:00 102 02/06/17 17:53 98.0 90 18 125/86 (99) 96 02/06/17 17:00 104 02/06/17 16:00 108 02/06/17 15:00 105 02/06/17 14:54 102 125/77 02/06/17 14:00 106 02/06/17 13:00 96 02/06/17 12:00 98 02/06/17 12:00 98.4 90 20 141/81 (101) 96 02/06/17 11:10 90 141/81 02/06/17 11:00 93 02/06/17 11:00 92 02/06/17 10:00 128 02/06/17 09:00 112 02/06/17 08:08 98.6 97 19 116/88 (97) 97 02/06/17 08:00 101 I/O 02/06/17 02/06/17 02/06/17 02/07/17 02/07/17 02/07/17 07:00 15:00 23:00 07:00 15:00 23:00 Intake Total 400 ml 250 ml 360 ml 360 ml Output Total 1150 ml Balance 400 ml 250 ml 360 ml -790 ml Intake Oral 400 ml 360 ml 360 ml IV Total 250 ml Output Urine Total 1150 ml # Voids 3 4 Physical Exam GENERAL: SKIN: Warm and dry. HEAD: Normocephalic. EYES: No scleral icterus. No injection or drainage. NECK: Supple, trachea midline. No JVD or lymphadenopathy. CARDIOVASCULAR: IR IR RESPIRATORY: Breath sounds equal bilaterally. No accessory muscle use. GASTROINTESTINAL: Abdomen soft, non-tender, nondistended. MUSCULOSKELETAL: No cyanosis, or edema. BACK: Nontender without obvious deformity. No CVA tenderness. Laboratory Laboratory Tests Test 02/07/17 04:40 Blood Urea Nitrogen 15 MG/DL Creatinine 0.83 MG/DL Random Glucose 104 MG/DL Calcium Level 8.9 MG/DL Magnesium Level 2.1 MG/DL Sodium Level 138 MEQ/L Potassium Level 3.6 MEQ/L Chloride Level 102 MEQ/L Carbon Dioxide Level 29.1 MEQ/L Anion Gap 7 MEQ/L Estimat Glomerular Filtration Rate 95 ML/MIN Assessment and Plan Problem List: (1) Atrial fibrillation with RVR ICD Codes: I48.91 - Unspecified atrial fibrillation Status: Acute Assessment and Plan afib - converted to NSR with amiodarone unable to do DCC due to LILLIAN thrombus HR now 50's. reduce BB dose. start oral amio 200 daily x 2-4 weeks to maintain NSR continue anticoagulation minimum 8 weeks FU outpatient event monitor to eval for afib outpatient stress test electively DC planning today fu in 2 weeks Carlos Crawford MD Feb 07, 2017 07:44
[2017-02-07] MEDS ORDERED: AMIO200T PO (08:44)
[2017-02-07] MEDS ORDERED: METO25TA3 PO (08:44)
[2017-02-07] MEDS ORDERED: XARE20TA PO (08:44)
--- NOTE | 2017-02-07 08:47 | HHI.DCPOC ---
Discharge Care Plan Diagnosis: (1) Atrial fibrillation with RVR Goals to Promote Your Health * To prevent worsening of your condition and complications * To maintain your health at the optimal level Directions to Meet Your Goals Take your medications as prescribed Follow your dietary instruction Follow activity as directed Keep your appointments as scheduled Take your immunizations and boosters as scheduled If your symptoms worsen call your PCP, if no PCP go to Urgent Care Center or Emergency Room Smoking is Dangerous to Your Health. Avoid second hand smoke Call the 24-hour hour crisis hotline for domestic abuse at Pari Menjivar Feb 07, 2017 08:47 Williams Lopez DO Feb 09, 2017 23:36
[2017-02-07] MEDS: LOSARTAN 50 MG TAB PO SCH (08:51)
[2017-02-07] MEDS: DOCUSATE SODIUM 50 MG/SENNA 8.6 MG TAB PO SCH (08:51)
[2017-02-07] MEDS: RIVAROXABAN 20 MG TAB PO SCH (08:52)
--- NOTE | 2017-02-07 08:52 | HHI.DS ---
Discharge Summary Admission Date Feb 03, 2017 at 19:39 Discharge Date: Feb 07, 2017 Admitting Diagnosis atrial fibrillation in RVR (1) Atrial fibrillation with RVR ICD Codes: I48.91 - Unspecified atrial fibrillation Status: Acute (2) Hypertension ICD Codes: I10 - Essential (primary) hypertension Status: Chronic Consultants Dr. Crawford Procedures none Brief History 56-year-old male that presents to the ED for evaluation of palpitations. Patient states that he has a history of atrial flutter and atrial fibrillation having had an ablation [address] Camarena. Patient reports that today his been working outside a lot making a shed and she started to notice that he was having palpitations as well as feeling like his heart was racing. Per patient he does not feel anxious or has any pain. Per patient he does feel somewhat short of breath with exertion as well as a slight headache. He denies any history of heart disease other than the atrial fibrillation. Patient follows with [facility] cardiology. He denies any recent travel. Per patient his been outside all day and his been trying to keep hydrated but he believes that he might have gotten dehydrated. He does have a history of hypertension and takes amlodipine as well as losartan. Has no allergies to medication. In er found to be in rapid atrail fib started on IV cardiazem bolus and drip . [facility] CBC/BMP: 02/04/17 0452 02/07/17 0440 Significant Findings Laboratory Tests Test 02/07/17 04:40 Imaging Last Impressions Chest X-Ray 02/03/17 0000 Signed Impressions: Service Date/Time: Friday, February 03, 2017 22:09 - CONCLUSION: No acute disease. Itz Emerson MD PE at Discharge General: in no acute distress Skin: left upper arm erythema present and warm to touch Cardiac: heart rate regular Respiratory: cta abd: s/nt ext: no edema Hospital Course Atrial fibrillation with RVR - Pt is a 56 y/o male with hx of atrial flutter and atrial fibrillation having had [place] [address] Camarena. - Patient presented to the ED on 02/03/17 with complaints of palpitations, mild SOB and a slight headache. He had been working outside that day making a shed and he started to notice that he was having palpitations. In the ED he was found to be in rapid atrial fib and was started on IV Cardizem bolus and drip - Cardiology was consulted - Pt was started on Metoprolol 50mg Q12H - He has had some slow A. fib with HR into the 50's - Case was discussed between Dr. Lopez and Dr. Crawford on 02/04 and it was recommended that the Cardizem gtt be stopped and continue on the Metoprolol - Increased Metoprolol to 75mg Q12H - Dr Crawford initiated amiodarone protocol on 02/0502/06/17 he is npo and plan is for BUCK/cardioversion. he was started on Xarelto cozaar added for bp 02/06/17 patient converted to NSR with amiodarone, BUCK/cardioversion cancelled per cardiology: unable to do DCC due to LILLIAN thrombus HR now 50's. reduce BB dose. start oral amio 200 daily x 2-4 weeks to maintain NSR continue anticoagulation minimum 8 weeks FU outpatient event monitor to eval for afib outpatient stress test electively DC planning today fu in 2 weeks Hypertension - See above. L upper extremity cellulitis Keflex 500 mg PO Q8H x 7 days follow up with PCP in 1 week Pt Condition on Discharge: Stable Discharge Disposition: Discharge Home Discharge Instructions DIET: Follow Instructions for: As Tolerated, No Restrictions Activities you can perform: Regular-No Restrictions Follow up Referrals: Cardiology - [address] Crawford PCP Follow-up - [address] Gonzalez New Medications: Cephalexin (Keflex) 500 Mg Capsule 500 MG PO Q8H for Infection for 7 Days, #21 CAP 0 Refills Amiodarone (Amiodarone) 200 Mg Tab 200 MG PO DAILY for A Fib, #30 TAB 0 Refills Metoprolol Tartrate (Metoprolol Tartrate) 25 Mg Tab 25 MG PO Q12HR for Heart rate/ blood pressure, #60 TAB 0 Refills Rivaroxaban (Xarelto) 20 Mg Tab 20 MG PO DAILY for blood thinner, #30 TAB 0 Refills Continued Medications: Losartan (Losartan) 50 Mg Tab 50 MG PO DAILY for Blood Pressure Management, #30 TAB 0 Refills [testosterone] () TOPICAL DAILY Discontinued Medications: Amlodipine (Amlodipine) 10 Mg Tab 10 MG PO DAILY for Blood Pressure Management, #30 TAB 0 Refills Aspirin (Aspirin) 325 Mg Tab 325 MG PO DAILY, #30 TAB 0 Refills Additional Information Patient examined. Assessment and plan formulated with Pari Menjivar PA-C. I agree with the above. Pari Menjivar Feb 07, 2017 08:52 Williams Lopez DO Feb 09, 2017 23:36
[2017-02-07] MEDS ORDERED: AMIODARONE 200 MG TAB PO SCH (09:00)
[2017-02-07] MEDS ORDERED: METOPROLOL TARTRATE 25 MG TAB PO SCH (09:00)
[2017-02-07] MEDS ORDERED: CEPH-460 PO (10:47)
[2017-02-07] MEDS ORDERED: CEPHALEXIN MONOHYDRATE 500 MG CAP PO ONE (12:15)
== END 2017-02-07 12:34 | disposition home or self-care (01) | DRG 309 ==
LOC: NEPE 17:08 → NEDA 19:08 → OBSVTOIN 19:39 → HCIS 20:58
PROVIDERS: ADMIT Hospitalist; ATTEND Hospitalist
DX: I48.91 Unspecified atrial fibrillation (principal); L03.114 Cellulitis of left upper limb; I51.3 Intracardiac thrombosis, not elsewhere classified; I10 Essential (primary) hypertension; I48.92 Unspecified atrial flutter; Z79.82 Long term (current) use of aspirin
CPT/HCPCS: 71010; 80048; 80053; 82550; 82552; 83735; 84484; 85025; 90732; 93005; 93306; 93312; 93320; 93325; 96361; 96365; 96375; J0282; J1160; J1650; J2060; J7030; J7060

== ENCOUNTER 2017-06-28 06:52 | Inpatient (IN) | payer OTHER ==
[~2017-06-28] VITALS: Ht 177.8 cm; Wt 102.5 kg
[2017-06-28] VITALS (12 sets, daily range): BP systolic 139–235; BP diastolic 77–142; PULSE 55–140; RESP 18–21; TEMP 97.8–98.8; O2SAT 97–100
[~2017-06-28 06:52] MED LIST changes: +AMIO200T PO; -ASPI325T PO; +CEPH-460 PO; +METO25TA3 PO; +XARE20TA PO; +testosterone TOPICAL
[2017-06-28] MEDS ORDERED: SODIUM CHLORIDE 0.9% FLUSH 10 ML FLUSH IV FLUSH PRN ×3 (07:30→09:15)
[2017-06-28] MEDS ORDERED: SODIUM CHLORIDE 0.9% FLUSH 10 ML FLUSH IVF PRN (07:30)
[2017-06-28] MEDS ORDERED: ASPIRIN 81 MG CHEW TAB PO ONE (07:30)
[2017-06-28] MEDS ORDERED: DILTIAZEM HCL 25 MG/5 ML VIAL IV PUSH ONE (07:30)
[2017-06-28] MEDS ORDERED: DILTIAZEM INJ 125 MG in SODIUM CHLORIDE 0.9% INJ 100 ML IV PRN (07:45)
[2017-06-28] MEDS ORDERED: DILTIAZEM HCL 50 MG/10 ML VIAL IV PUSH ONE (08:00)
[2017-06-28 08:16] LABS: AUTOMATED NEUTROPHIL # 3.3 TH/MM3 (1.8-7.7); BASOPHIL % 0.8 % (0.0-2.0); EOSINOPHIL # 0.1 TH/MM3 (0-0.4); EOSINOPHIL % 2.1 % (0.0-4.0); HEMATOCRIT 45.5 % (39.0-51.0); LYMPH % 23.8 % (9.0-44.0); LYMPHOCYTE # 1.3 TH/MM3 (1.0-4.8); MEAN CELL VOLUME 90.6 FL (80.0-100.0); MEAN CORPUSCULAR HEMOGLOBIN 31.8 PG (27.0-34.0); MEAN CORPUSCULAR HGB CONC 35.1 % (32.0-36.0); MEAN PLATELET VOLUME 9.2 FL (7.0-11.0); MONO % 10.8 % (0.0-8.0); MONOCYTE # 0.6 TH/MM3 (0-0.9); NEUT % 62.5 % (16.0-70.0); PLATELET COUNT 169 TH/MM3 (150-450); RED BLOOD COUNT 5.02 MIL/MM3 (4.50-5.90); RED CELL DISTRIBUTION WIDTH 12.9 % (11.6-17.2); WHITE BLOOD COUNT 5.3 TH/MM3 (4.0-11.0)
[2017-06-28 08:21] LABS: INTERNATIONAL NORMALIZED RATIO 1.3 RATIO; PROTHROMBIN TIME - PATIENT 12.7 SEC (9.8-11.6)
--- NOTE | 2017-06-28 08:29 | PD ---
HPI . Palpitations Chief Complaint: Chest Pain Time Seen by Provider: 07:17 Travel History International Travel<30 days: No Contact w/Intl Traveler<30days: No Traveled to known affect area: No History of Present Illness HPI This patient presents with chief complaint of palpitations. Acute onset was about 3 year 4 hours ago. He states that it started when he was having a coughing spell. Nothing has improved it. Symptoms have been continuous for the past 3 or 4 hours. He states that he has been having coughing spells for probably a month now and that they are just not getting any better. He's been seen in urgent care who attributed the coughing spells to a viral illness. Patient reports a similar history of palpitations related to atrial fibrillation. He was treated here and converted back into a normal sinus rhythm. He believes that he has remained in a normal sinus rhythm until this morning. He denies any associated dizziness or shortness of breath. PFSH Past Medical History Atrial Fibrillation: Yes Blood Disorders: No Anxiety: No Depression: No Heart Rhythm Problems: Yes Cancer: No Cardiovascular Problems: Yes High Cholesterol: Yes Chemotherapy: No Chest Pain: No Congestive Heart Failure: No Diabetes: No Diminished Hearing: No Hypertension: Yes Immune Disorder: No Implanted Vascular Access Dvce: Yes Musculoskeletal: Yes Psychiatric: No Respiratory: No Tetanus Vaccination: > 5 Years Influenza Vaccination: Yes Past Surgical History Body Medical Devices: SCREWS IN KNEE Cardiac Surgery: Yes (ablation 2010) Tonsillectomy: Yes Other Surgery: Yes Social History Alcohol Use: Yes (occasional) Tobacco Use: No Substance Use: No Allergies-Medications (Allergen,Severity, Reaction): Coded Allergies: No Known Allergies (Verified , 02/03/17) Reported Meds & Prescriptions Reported Meds & Active Scripts Active Keflex (Cephalexin) 500 Mg Capsule 500 Mg PO Q8H 7 Days Metoprolol Tartrate 25 Mg Tab 25 Mg PO Q12HR Amiodarone (Amiodarone HCl) 200 Mg Tab 200 Mg PO DAILY Xarelto (Rivaroxaban) 20 Mg Tab 20 Mg PO DAILY Reported [testosterone] TOPICAL DAILY Losartan (Losartan Potassium) 50 Mg Tab 50 Mg PO DAILY Review of Systems Except as stated in HPI: all other systems reviewed are Neg Cardiovascular: Positive: Palpitations Respiratory: Positive: Cough Physical Exam Narrative GENERAL: Patient is awake and alert and looks well. SKIN: warm/dry. Normal color and turgor. HEAD: Normocephalic. Atraumatic. EYES: Pupils equal and round. No scleral icterus. No injection or drainage. ENT: No nasal bleeding or discharge. Mucous membranes pink and moist. NECK: Trachea midline. Full range of motion without pain.. CARDIOVASCULAR: Irregularly irregular rate and rhythm with a rate in the 130s. RESPIRATORY: No accessory muscle use. Clear to auscultation. Breath sounds equal bilaterally. GASTROINTESTINAL: Abdomen soft. Nontender. Bowel sounds present. Nondistended. MUSCULOSKELETAL: No obvious deformities. NEUROLOGICAL: Awake and alert. No obvious cranial nerve deficits. Motor grossly within normal limits. Normal speech. PSYCHIATRIC: Appropriate mood and affect; insight and judgment normal. Data Data Last Documented VS Vital Signs Date Time Temp Pulse Resp B/P (MAP) Pulse Ox O2 Delivery O2 Flow Rate FiO2 06/28/17 08:10 139 206/98 06/28/17 08:01 18 100 Nasal Cannula 2.00 06/28/17 07:01 98.8 Orders Orders Basic Metabolic Panel (Bmp) (06/28/17 07:17) Complete Blood Count With Diff (06/28/17 07:17) Magnesium (Mg) (06/28/17 07:17) Prothrombin Time / Inr (Pt) (06/28/17 07:17) Act Partial Throm Time (Ptt) (06/28/17 07:17) Troponin I (06/28/17 07:17) Ecg Monitoring (06/28/17 07:17) Iv Access Insert/Monitor (06/28/17 07:17) Oximetry (06/28/17 07:17) Aspirin Chew (Aspirin Chew) (06/28/17 07:30) Sodium Chloride 0.9% Flush (Ns Flush) (06/28/17 07:30) Diltiazem Inj (Cardizem Inj) (06/28/17 07:30) Sodium Chloride 0.9% Flush (Ns Flush) (06/28/17 07:30) Diltiazem Inj (Cardizem Inj) (06/28/17 07:45) Sodium Chloride 0.9% Flush (Ns Flush) (06/28/17 07:45) Diltiazem Inj (Cardizem Inj) (06/28/17 08:00) Chest, Single Ap (06/28/17 07:17) ^ Medication Alert (06/28/17 08:23) ^ Discontinue (06/28/17 08:23) Dextrose 5% In Wate... W/Amiodarone Inj (06/28/17 08:33) Sodium Chlor 0.9% (... W/Amiodarone Inj (06/28/17 08:30) Lorazepam Inj (Ativan Inj) (06/28/17 08:30) Consult Cardiology (06/28/17 ) Admit Order (Ed Use Only) (06/28/17 08:54) Labs Laboratory Tests Test 06/28/17 07:45 White Blood Count 5.3 TH/MM3 Red Blood Count 5.02 MIL/MM3 Hemoglobin 16.0 GM/DL Hematocrit 45.5 % Mean Corpuscular Volume 90.6 FL Mean Corpuscular Hemoglobin 31.8 PG Mean Corpuscular Hemoglobin Concent 35.1 % Red Cell Distribution Width 12.9 % Platelet Count 169 TH/MM3 Mean Platelet Volume 9.2 FL Neutrophils (%) (Auto) 62.5 % Lymphocytes (%) (Auto) 23.8 % Monocytes (%) (Auto) 10.8 % Eosinophils (%) (Auto) 2.1 % Basophils (%) (Auto) 0.8 % Neutrophils # (Auto) 3.3 TH/MM3 Lymphocytes # (Auto) 1.3 TH/MM3 Monocytes # (Auto) 0.6 TH/MM3 Eosinophils # (Auto) 0.1 TH/MM3 Basophils # (Auto) 0.0 TH/MM3 CBC Comment DIFF FINAL Differential Comment Prothrombin Time 12.7 SEC Prothromb Time International Ratio 1.3 RATIO Activated Partial Thromboplast Time 31.3 SEC Blood Urea Nitrogen 16 MG/DL Creatinine 0.74 MG/DL Random Glucose 106 MG/DL Calcium Level 9.1 MG/DL Magnesium Level 2.0 MG/DL Sodium Level 141 MEQ/L Potassium Level 4.0 MEQ/L Chloride Level 107 MEQ/L Carbon Dioxide Level 24.4 MEQ/L Anion Gap 10 MEQ/L Estimat Glomerular Filtration Rate 109 ML/MIN Troponin I 0.18 NG/ML MDM Medical Decision Making Medical Screen Exam Complete: Yes Emergency Medical Condition: Yes Medical Record Reviewed: Yes (patient was seen here in the recent past with similar symptoms. That time, the palpitations occurred while doing heavy outside work. He did not respond to calcium channel blockers or beta blockers. He was eventually treated with an amiodarone drip. Plans were made to do a BUCK and cardioversion that he converted to a sinus rhythm on the amiodarone.) Interpretation(s) EKG shows what the computer is calling a junctional tachycardia. Differential Diagnosis Differential diagnosis of tachycardia includes but is not limited to PSVT, atrial fibrillation with a rapid ventricular response, sinus tachycardia (due to hypovolemia, anemia, thyrotoxicosis, PE) Narrative Course This patient presents with tachycardia. He was initially treated with Cardizem 2 boluses and drip. This had absolutely no effect on his heart rate. After having time to repeat his record, I have discontinued the Cardizem drip and ordered an amiodarone drip. In the meantime, plans will be made for him to be admitted to the hospital further evaluation and treatment. CXR>> no acute disease. The chest x-ray was independently reviewed by me. CBC & BMP Diagram 06/28/17 07:45 Calcium Level 9.1, Magnesium Level 2.0 trop 0.18 Critical Care Narrative Aggregate critical care time was 35 minutes. Time to perform other separately billable procedures was not included in the critical care time. My time did not include minutes spent treating any other patients simultaneously or on activities that did not directly contribute to the patient's treatment. The services I provided to this patient were to treat and/or prevent clinically significant deterioration due to AF with RVR I provided critical care services requiring my management, as noted below: Chart data review, documentation time, medication orders and management, vital sign assessments/reviewing monitor data, ordering and reviewing lab tests, ordering and interpreting/reviewing x-rays and diagnostic studies, care of the patient and discussion of the patient with the admitting physicians Physician Communication Physician Communication Dr. Lopez Diagnosis Primary Impression: Atrial fibrillation with RVR Additional Impression: Elevated troponin Admitting Information Admitting Physician Requests: Admit Condition: Stable Naomie Carroll MD Jun 28, 2017 08:29
[2017-06-28 08:30] LABS: TROPONIN I 0.18 NG/ML (0.02-0.05)
[2017-06-28] MEDS ORDERED: AMIODARONE INJ 450 MG in SODIUM CHLOR 0.9% (EXCEL) INJ 241 ML IV PRN (08:30)
[2017-06-28] MEDS ORDERED: LORazepam 2 MG/ML VIAL IV PUSH ONE (08:30)
[2017-06-28] MEDS ORDERED: AMIODARONE INJ 450 MG in DEXTROSE 5% IN WATE(EXCEL) INJ 241 ML IV PRN ×2 (08:33)
--- NOTE | 2017-06-28 08:33 | RADRPT ---
EXAM DATE/TIME: 06/28/2017 07:54 [facility] COMPARISON: CHEST SINGLE AP, February 03, 2017, 22:09. INDICATIONS : Chest pain, short of breath, rapid heart rate MEDICAL HISTORY : Cardiovascular disease. Hypertension A-fib, Atrial flutter SURGICAL HISTORY : cardiac ablation ENCOUNTER: Initial ACUITY: 1 day PAIN SCORE: 5/10 LOCATION: Bilateral chest FINDINGS: A single view of the chest demonstrates the lungs to be symmetrically aerated without evidence of mas s, infiltrate or effusion. The cardiomediastinal contours are unremarkable. Osseous structures are intact. CONCLUSION: No acute disease. Titus Carrasco MD FACR on June 28, 2017 at 8:32 Board Certified Radiologist. This report was verified electronically.
[2017-06-28 08:35] LABS: BICARBONATE 24.4 MEQ/L (21.0-32.0); CALCIUM 9.1 MG/DL (8.5-10.1); CREATININE 0.74 MG/DL (0.60-1.30)
[2017-06-28] MEDS ORDERED: ACETAMINOPHEN 325 MG TAB PO PRN (09:15)
[2017-06-28] MEDS ORDERED: ONDANSETRON HCL 4 MG/2 ML VIAL IVP PRN (09:15)
[2017-06-28] MEDS ORDERED: TEMAZEPAM 15 MG CAP PO PRN (09:15)
[2017-06-28] MEDS ORDERED: MAGNESIUM HYDROXIDE SUSP 30 ML CUP PO PRN (09:15)
[2017-06-28] MEDS ORDERED: NALOXONE HCL 0.4 MG/ML AMP IV PUSH PRN (09:15)
--- NOTE | 2017-06-28 09:22 | HHI.HP ---
HPI Service [facility] Hospitalists Primary Care Physician Itz Gonzalez, DO Admission Diagnosis AF with RVR Chief Complaint: palpitations x 3-4 hours Travel History International Travel<30 Days: No Contact w/Intl Traveler <30 Da: No Traveled to Known Affected Are: No History of Present Illness This is a 56 year old male patient with a past medical history of HTN and Atrial Fibrillation S/P ablation in [address] Camarena. Patient was hospitalized from 02/03/17 - 02/07/17 for atrial fibrillation and DC'd with Amiodarone and Xarelto. Patient reports that he has been having, "coughing spells," for the past month for which he has been seen by urgent care and the cough was attributed to viral illness. Patient began to have palpiations after a coughing spell. Patient reports that the palpitation feel similar to when he has had Atrial Fibrillation in the past. The palpitations were persistent for 3-4 hours so patient proceeded to the ER. EKG on arrival to the ER revealed Atrial Fibrillation RVR.. Patient denies any associated dizziness or shortness of breath. Patient was given Cardizem bolus, Cardizem drip and amiodarone drip in ER, which did not improve his HR. Patient was seen by Dr. Gao and cardioversion was successfully done. Patient now in SR Review of Systems Constitutional: DENIES: Fever, Chills, Dizziness Respiratory: COMPLAINS OF: Cough, DENIES: Sputum production, Shortness of breath Cardiovascular: COMPLAINS OF: Palpitations, DENIES: Chest pain Gastrointestinal: DENIES: Abdominal pain Psychiatric: DENIES: Anxiety, Confusion, Depression Past Family Social History Past Medical History hypertension,a fib Past Surgical History knee, cardiac ablation 2010 Reported Medications Metoprolol Tartrate 25 Mg Tab 25 Mg PO Q12HR Xarelto (Rivaroxaban) 20 Mg Tab 20 Mg PO DAILY [testosterone] TOPICAL DAILY Losartan (Losartan Potassium) 50 Mg Tab 100 Mg PO DAILY Allergies: Coded Allergies: No Known Allergies (Verified , 02/03/17) Family History reviewed and noncontributory Social History drinks beer and vodka on weekends Physical Exam Vital Signs Vital Signs Date Time Temp Pulse Resp B/P (MAP) Pulse Ox O2 Delivery O2 Flow Rate FiO2 06/28/17 09:10 140 180/96 06/28/17 08:10 139 206/98 06/28/17 08:01 136 18 206/98 (134) 100 Nasal Cannula 2.00 06/28/17 07:36 138 18 97 Room Air 06/28/17 07:32 137 18 235/126 (162) 98 Room Air 06/28/17 07:01 98.8 140 18 194/142 (159) 98 Physical Exam GENERAL: This is a well-nourished, well-developed patient, in no apparent distress. SKIN: No rashes, ecchymoses or lesions. Cool and dry. HEAD: Atraumatic. Normocephalic. No temporal or scalp tenderness. EYES: Extraocular mo regular rate and rhythm RESPIRATORY: Clear to auscultation. Breath sounds equal bilaterally. GASTROINTESTINAL: Abdomen soft, non-tender, nondistended. MUSCULOSKELETAL: Extremities without clubbing, cyanosis, or edema. No joint tenderness, effusion, or edema noted. No calf tenderness. Negative Homans sign bilaterally. NEUROLOGICAL: Awake and alert. No focal deficits noted. Motor and sensory grossly within normal limits. Five out of 5 muscle strength in all muscle groups. Normal speech. Laboratory Laboratory Tests Test 06/28/17 07:45 White Blood Count 5.3 Red Blood Count 5.02 Hemoglobin 16.0 Hematocrit 45.5 Mean Corpuscular Volume 90.6 Mean Corpuscular Hemoglobin 31.8 Mean Corpuscular Hemoglobin Concent 35.1 Red Cell Distribution Width 12.9 Platelet Count 169 Mean Platelet Volume 9.2 Neutrophils (%) (Auto) 62.5 Lymphocytes (%) (Auto) 23.8 Monocytes (%) (Auto) 10.8 Eosinophils (%) (Auto) 2.1 Basophils (%) (Auto) 0.8 Neutrophils # (Auto) 3.3 Lymphocytes # (Auto) 1.3 Monocytes # (Auto) 0.6 Eosinophils # (Auto) 0.1 Basophils # (Auto) 0.0 CBC Comment DIFF FINAL Differential Comment Prothrombin Time 12.7 Prothromb Time International Ratio 1.3 Activated Partial Thromboplast Time 31.3 Blood Urea Nitrogen 16 Creatinine 0.74 Random Glucose 106 Calcium Level 9.1 Magnesium Level 2.0 Sodium Level 141 Potassium Level 4.0 Chloride Level 107 Carbon Dioxide Level 24.4 Anion Gap 10 Estimat Glomerular Filtration Rate 109 Troponin I 0.18 Result Diagram: 06/28/1745 06/28/1745 Imaging Last Impressions Chest X-Ray 06/28/17 0717 Signed Impressions: Service Date/Time: Wednesday, June 28, 2017 07:54 - CONCLUSION: No acute disease. Titus Carrasco MD FACR Gm VTE Risk Assessment Gm VTE Risk Assessment: No/Low Risk (score <= 1) Davirini Risk Assessment Model Point Value = 1 Point Value = 2 Point Value = 3 Point Value = 5 Age 41-60 Minor surgery BMI > 25 kg/m2 Swollen legs Varicose veins or History of unexplained or recurrent spontaneous Oral contraceptives or hormone replacement Sepsis (< 1 month) Serious lung disease, including pneumonia (< 1 month) Abnormal pulmonary function Acute myocardial infarction Congestive heart failure (< 1 month) History of inflammatory bowel disease Medical patient at bed rest Age 61-74 Arthroscopic surgery Major open surgery (> 45 min) Laparoscopic surgery (> 45 min) Malignancy Confined to bed (> 72 hours) Immobilizing plaster cast Central venous access Age >= 75 History of VTE Family history of VTE Factor V Leiden Prothrombin [id number] Lupus anticoagulant Anticardiolipin antibodies Elevated serum homocysteine Heparin-induced thrombocytopenia Other congenital or acquired thrombophilia Stroke (< 1 month) Elective arthroplasty Hip, pelvis, or leg fracture Acute spinal cord injury (< 1 month) Prophylaxis Regimen Total Risk Factor Score Risk Level Prophylaxis Regimen 0-1 Low Early ambulation 2 Moderate Order ONE of the following: *Sequential Compression Device (SCD) *Heparin 5000 units SQ BID 3-4 Higher Order ONE of the following medications: *Heparin 5000 units SQ TID *Enoxaparin/Lovenox 40 mg SQ daily (WT < 150 kg, CrCl > 30 mL/min) *Enoxaparin/Lovenox 30 mg SQ daily (WT < 150 kg, CrCl > 10-29 mL/min) *Enoxaparin/Lovenox 30 mg SQ BID (WT < 150 kg, CrCl > 30 mL/min) AND/OR *Sequential Compression Device (SCD) 5 or more Highest Order ONE of the following medications: *Heparin 5000 units SQ TID (Preferred with Epidurals) *Enoxaparin/Lovenox 40 mg SQ daily (WT < 150 kg, CrCl > 30 mL/min) *Enoxaparin/Lovenox 30 mg SQ daily (WT < 150 kg, CrCl > 10-29 mL/min) *Enoxaparin/Lovenox 30 mg SQ BID (WT < 150 kg, CrCl > 30 mL/min) AND *Sequential Compression Device (SCD) Assessment and Plan Problem List: (1) Atrial fibrillation with RVR ICD Codes: I48.91 - Unspecified atrial fibrillation Status: Acute Plan: Patient has had cardiac ablation [address] Camarena and has also had a recent admission 01/2017 due to Atrial Fibrillation RVR Patient on Xarelto 20 mg PO daily will continue Patient was given Cardizem bolus, Cardizem drip and amiodarone drip in ER, which did not improve his HR. Patient was seen by Dr. Gao and cardioversion was successfully done. Patient now in SR Cardiology increased metoprolol to 50 mg PO BID continuous telemetry Troponin 0.18 likely demand mediated from A Fib RVR patient denies chest pain (2) Hypertension ICD Codes: I10 - Essential (primary) hypertension Status: Chronic Plan: Resume patient's home Losartan 100mg PO daily cardiology increase Metoprolol to 50 mg PO Q12H PRN clonidine and Vasotec Assessment and Plan Patient examined. Assessment and plan formulated with Pari Menjivar PA-C. I agree with the above. Physician Certification 2 Midnight Certification Type: Admission for Inpatient Services Order for Inpatient Services The services are ordered in accordance with Medicare regulations or non- Medicare payer requirements, as applicable. In the case of services not specified as inpatient-only, they are appropriately provided as inpatient services in accordance with the 2-midnight benchmark. Estimated LOS (days): 3 days is the estimated time the patient will need to remain in the hospital, assuming treatment plan goals are met and no additional complications. Post-Hospital Plan: Pari Gonzalez Jun 28, 2017 09:22 Williams Lopez DO Jul 01, 2017 12:13
[2017-06-28] MEDS ORDERED: METOPROLOL TARTRATE 25 MG TAB PO SCH (09:45)
[2017-06-28] MEDS ORDERED: ADENOSINE IV SOLN 3 MG/ML 2 ML VIAL ONE (10:47)
[2017-06-28] MEDS ORDERED: PROPOFOL 500 MG/50 ML INJ 50 ML ONE (10:54)
[2017-06-28] MEDS ORDERED: PROPOFOL 200 MG/20 ML AMP IV ONE (11:00)
--- NOTE | 2017-06-28 11:05 | PD ---
Physical Exam Date Seen by Provider: Jun 28, 2017 Narrative Patient's atrial fibrillation persisted despite Cardizem followed by amiodarone. Dr. Gao saw the patient and elected to cardiovert the patient. I was asked to provide conscious sedation. Data Data Last Documented VS Vital Signs Date Time Temp Pulse Resp B/P (MAP) Pulse Ox O2 Delivery O2 Flow Rate FiO2 06/28/17 08:10 139 206/98 06/28/17 08:01 18 100 Nasal Cannula 2.00 06/28/17 07:01 98.8 Orders Orders Basic Metabolic Panel (Bmp) (06/28/17 07:17) Complete Blood Count With Diff (06/28/17 07:17) Magnesium (Mg) (06/28/17 07:17) Prothrombin Time / Inr (Pt) (06/28/17 07:17) Act Partial Throm Time (Ptt) (06/28/17 07:17) Troponin I (06/28/17 07:17) Ecg Monitoring (06/28/17 07:17) Iv Access Insert/Monitor (06/28/17 07:17) Oximetry (06/28/17 07:17) Aspirin Chew (Aspirin Chew) (06/28/17 07:30) Sodium Chloride 0.9% Flush (Ns Flush) (06/28/17 07:30) Diltiazem Inj (Cardizem Inj) (06/28/17 07:30) Sodium Chloride 0.9% Flush (Ns Flush) (06/28/17 07:30) Diltiazem Inj (Cardizem Inj) (06/28/17 07:45) Sodium Chloride 0.9% Flush (Ns Flush) (06/28/17 07:45) Diltiazem Inj (Cardizem Inj) (06/28/17 08:00) Chest, Single Ap (06/28/17 07:17) ^ Medication Alert (06/28/17 08:23) ^ Discontinue (06/28/17 08:23) Dextrose 5% In Wate... W/Amiodarone Inj (06/28/17 08:33) Sodium Chlor 0.9% (... W/Amiodarone Inj (06/28/17 08:30) Lorazepam Inj (Ativan Inj) (06/28/17 08:30) Consult Cardiology (06/28/17 ) Admit Order (Ed Use Only) (06/28/17 08:54) Labs Laboratory Tests Test 06/28/17 07:45 White Blood Count 5.3 TH/MM3 Red Blood Count 5.02 MIL/MM3 Hemoglobin 16.0 GM/DL Hematocrit 45.5 % Mean Corpuscular Volume 90.6 FL Mean Corpuscular Hemoglobin 31.8 PG Mean Corpuscular Hemoglobin Concent 35.1 % Red Cell Distribution Width 12.9 % Platelet Count 169 TH/MM3 Mean Platelet Volume 9.2 FL Neutrophils (%) (Auto) 62.5 % Lymphocytes (%) (Auto) 23.8 % Monocytes (%) (Auto) 10.8 % Eosinophils (%) (Auto) 2.1 % Basophils (%) (Auto) 0.8 % Neutrophils # (Auto) 3.3 TH/MM3 Lymphocytes # (Auto) 1.3 TH/MM3 Monocytes # (Auto) 0.6 TH/MM3 Eosinophils # (Auto) 0.1 TH/MM3 Basophils # (Auto) 0.0 TH/MM3 CBC Comment DIFF FINAL Differential Comment Prothrombin Time 12.7 SEC Prothromb Time International Ratio 1.3 RATIO Activated Partial Thromboplast Time 31.3 SEC Blood Urea Nitrogen 16 MG/DL Creatinine 0.74 MG/DL Random Glucose 106 MG/DL Calcium Level 9.1 MG/DL Magnesium Level 2.0 MG/DL Sodium Level 141 MEQ/L Potassium Level 4.0 MEQ/L Chloride Level 107 MEQ/L Carbon Dioxide Level 24.4 MEQ/L Anion Gap 10 MEQ/L Estimat Glomerular Filtration Rate 109 ML/MIN Troponin I 0.18 NG/ML [facility] Supervised Visit with ANNA: No Procedures Procedure Narrative After the risks and benefits were discussed the following procedure was performed: MODERATE SEDATION: The patient was placed on a mechanical technician and pulse oximetry. An ambu bag and suction was immediately available at bedside. The patient was monitored by the nurse and respiratory therapy. Oxygen saturation, capnography, heart rate and blood pressure were monitored. Procedural sedation was achieved using Propofol. The patient was observed until awake and alert. Procedural Sedation time in attendance was 20 minutes. Diagnosis Primary Impression: Atrial fibrillation with RVR Additional Impression: Elevated troponin Condition: Stable Naomie Carroll MD Jun 28, 2017 11:05
[2017-06-28] MEDS: RIVAROXABAN 20 MG TAB PO SCH (11:40)
[2017-06-28] MEDS: LOSARTAN 50 MG TAB PO SCH (11:41)
--- NOTE | 2017-06-28 15:49 | MB ---
cc: Cliff Gao MD DATE OF CONSULT: HISTORY: This is a 56-year-old gentleman, has long history of atrial fib/flutter, actually underwent ablation in 2010. He has been followed by Dr. Crawford and in 01/2017, again had an episode of atrial flutter. He converted back to sinus rhythm, has been managed medically as an outpatient on Xarelto, metoprolol, lisinopril. He noted over the past month or so, he has been having a cold and flu and actually felt that he may be having increasing fluid in his lungs, which feels similar to a viral illness. This morning, began having significant palpitations after a coughing spell, very similar his atrial fibrillation in the past. He presented to the emergency department and electrocardiogram has demonstrated atrial flutter. He has been given Cardizem x 2 with boluses, as well as an intravenous infusion without success. He has also been started on a small dose of amiodarone, again without success. He was given a dose of adenosine without significant change in his heart rate. We discussed the options with him, and in view of his months-long treatment with Xarelto, decision to cardiovert was made and done so with direct counter shock with success with 50 joules. He is currently resting comfortably. No shortness of breath or chest pain has been present and no prior history of heart disease has been present. ALLERGIES: NONE. SOCIAL HISTORY: Patient drinks occasionally. He is a nonsmoker. PHYSICAL EXAMINATION: His heart rate is 140. Blood pressure is initially 200/98. His pulse ox was essentially normal but 100% on 2 L. No neck vein distention is present. LUNGS: Clear. CARDIOVASCULAR: Reveals a regular rate and rhythm with no murmur or gallop. EXTREMITIES: Reveal no edema. LABORATORY EXAMINATION: Significant for normal renal function with a troponin of 0.18. ASSESSMENT: Patient has had atrial flutter, which has been a recurrent problem for him. He has been successfully cardioverted. His troponin is likely demand mediated in the absence of any significant chest pain; however, we will keep him overnight and trend his troponins and consider ischemic workup pending that outcome. We will meanwhile continue his Xarelto. We will increase his metoprolol to 50 mg twice a day and continue his losartan and reevaluate his hypertension tomorrow. Cliff Gao MD DLEulogio/LK , 11:18 AM , 03:47 PM
--- NOTE | 2017-06-28 18:08 | EKG ---
Date Performed: 06/28/2017 Time Performed: 07:30:11 PTAGE: 56 years EKG: Atrial flutter with 2:[address]-T wave changes Since previous tracing, no significant change noted ABNORMAL ECG PREVIOUS TRACING : 02/03/2017 17.18 DOCTOR: Jojo Carvalho Interpretating Date/Time 06/28/2017 18:06:26
[2017-06-28] MEDS ORDERED: RESP: ALBUTEROL 2.5 MG/IPRATROPIUM 0.5 MG NEB (PRN) NEB (19:00)
[2017-06-28] MEDS ORDERED: ENALAPRILAT 1.25 MG/ML VIAL IV PUSH PRN (19:00)
[2017-06-28] MEDS: METOPROLOL TARTRATE 50 MG TAB PO SCH (21:28)
[2017-06-28] MEDS: SODIUM CHLORIDE 0.9% FLUSH 10 ML FLUSH IV FLUSH SCH (21:28)
[2017-06-28] MEDS: cloNIDine HCL 0.1 MG TAB PO PRN (23:48)
[2017-06-29] VITALS (22 sets, daily range): BP systolic 132–188; BP diastolic 64–91; PULSE 50–74; RESP 20; TEMP 97.6–98.4; O2SAT 68–99
[2017-06-29 05:32] LABS: AUTOMATED NEUTROPHIL # 2.5 TH/MM3 (1.8-7.7); BASOPHIL % 0.6 % (0.0-2.0); EOSINOPHIL # 0.1 TH/MM3 (0-0.4); EOSINOPHIL % 2.5 % (0.0-4.0); HEMATOCRIT 41.9 % (39.0-51.0); HEMOGLOBIN 14.5 GM/DL (13.0-17.0); LYMPH % 30.4 % (9.0-44.0); LYMPHOCYTE # 1.4 TH/MM3 (1.0-4.8); MEAN CELL VOLUME 91.9 FL (80.0-100.0); MEAN CORPUSCULAR HEMOGLOBIN 31.9 PG (27.0-34.0); MEAN CORPUSCULAR HGB CONC 34.7 % (32.0-36.0); MEAN PLATELET VOLUME 8.8 FL (7.0-11.0); MONO % 12.5 % (0.0-8.0); MONOCYTE # 0.6 TH/MM3 (0-0.9); PLATELET COUNT 141 TH/MM3 (150-450); RED BLOOD COUNT 4.56 MIL/MM3 (4.50-5.90); RED CELL DISTRIBUTION WIDTH 12.7 % (11.6-17.2); WHITE BLOOD COUNT 4.6 TH/MM3 (4.0-11.0)
[2017-06-29 05:58] LABS: BICARBONATE 29.2 MEQ/L (21.0-32.0); CALCIUM 8.7 MG/DL (8.5-10.1); CREATININE 0.67 MG/DL (0.60-1.30)
[2017-06-29 06:01] LABS: TROPONIN I 0.14 NG/ML (0.02-0.05)
[2017-06-29] MEDS: METOPROLOL TARTRATE 50 MG TAB PO SCH ×2 (08:14→20:04)
[2017-06-29] MEDS: RIVAROXABAN 20 MG TAB PO SCH (08:14)
[2017-06-29] MEDS: LOSARTAN 50 MG TAB PO SCH (08:14)
[2017-06-29] MEDS: SODIUM CHLORIDE 0.9% FLUSH 10 ML FLUSH IV FLUSH SCH (08:25)
--- NOTE | 2017-06-29 09:22 | PD.CARD.PN ---
Subjective Subjective Remarks Remains in NSR. BP elevated. Troponin fl;at 0.18 Objective Medications Current Medications Medications (Trade) Dose Ordered Sig/Darryl Route Start Time Stop Time Status Last Admin Amiodarone HCl 450 mg/Sodium Chloride 250 ml @ 33.33 mls/ hr [id number] PRN IV 06/28/17 08:30 06/28/17 09:20 (NS Flush) 2 ml UNSCH PRN IV FLUSH 06/28/17 09:15 (NS Flush) 2 ml BID IV FLUSH 06/28/17 21:00 06/29/17 08:25 (Tylenol) 650 mg Q4H PRN PO 06/28/17 09:15 (Zofran Inj) 4 mg Q6H PRN IVP 06/28/17 09:15 (Restoril) 15 mg HS PRN PO 06/28/17 09:15 (Narcan Inj) 0.4 mg UNSCH PRN IV PUSH 06/28/17 09:15 (Milk Of Magnmerry Liq) 30 ml Q12H PRN PO 06/28/17 09:15 (Xarelto) 20 mg DAILY PO 06/28/17 10:00 06/29/17 08:14 (Cozaar) 100 mg DAILY PO 06/28/17 09:45 06/29/17 08:14 (Lopressor) 50 mg Q12HR PO 06/28/17 21:00 06/29/17 08:14 (Duoneb Neb) 1 ampule Q2HR NEB PRN NEB 06/28/17 19:00 (Catapres) 0.1 mg Q6H PRN PO 06/28/17 19:00 06/28/17 23:48 (Vasotec Inj) 1.25 mg Q6H PRN IV PUSH 06/28/17 19:00 Vital Signs / I&O Vital Signs Date Time Temp Pulse Resp B/P (MAP) Pulse Ox O2 Delivery O2 Flow Rate FiO2 06/29/17 08:00 55 06/29/17 08:00 98.0 68 20 181/91 (121) 68 06/29/17 06:00 53 06/29/17 05:00 55 06/29/17 04:00 52 06/29/17 03:00 97.6 53 154/89 (110) 99 06/29/17 03:00 50 06/29/17 02:00 52 06/29/17 01:00 50 06/29/17 00:00 52 06/28/17 23:00 97.8 55 165/89 (114) 98 06/28/17 23:00 56 06/28/17 22:00 60 06/28/17 21:00 66 06/28/17 20:00 64 06/28/17 19:00 97.8 70 161/91 (114) 97 06/28/17 19:00 64 06/28/17 15:00 98.7 57 21 151/77 (101) 100 06/28/17 14:25 06/28/17 14:12 58 18 164/92 (116) 99 Nasal Cannula 2.00 06/28/17 12:38 56 18 144/80 (101) 99 Room Air 06/28/17 11:15 61 18 139/81 (100) 99 Nasal Cannula 2.00 I/O 06/28/17 06/28/17 06/28/17 06/29/17 06/29/17 06/29/17 07:00 15:00 23:00 07:00 15:00 23:00 Intake Total 1320 ml Output Total 2375 ml Balance -1055 ml Intake Oral 1320 ml Output Urine Total 2375 ml Physical Exam Lungs clear RRR Laboratory Laboratory Tests Test 06/29/17 04:47 06/29/17 05:19 White Blood Count 4.6 TH/MM3 Red Blood Count 4.56 MIL/MM3 Hemoglobin 14.5 GM/DL Hematocrit 41.9 % Mean Corpuscular Volume 91.9 FL Mean Corpuscular Hemoglobin 31.9 PG Mean Corpuscular Hemoglobin Concent 34.7 % Red Cell Distribution Width 12.7 % Platelet Count 141 TH/MM3 Mean Platelet Volume 8.8 FL Neutrophils (%) (Auto) 54.0 % Lymphocytes (%) (Auto) 30.4 % Monocytes (%) (Auto) 12.5 % Eosinophils (%) (Auto) 2.5 % Basophils (%) (Auto) 0.6 % Neutrophils # (Auto) 2.5 TH/MM3 Lymphocytes # (Auto) 1.4 TH/MM3 Monocytes # (Auto) 0.6 TH/MM3 Eosinophils # (Auto) 0.1 TH/MM3 Basophils # (Auto) 0.0 TH/MM3 CBC Comment DIFF FINAL Differential Comment Blood Urea Nitrogen 14 MG/DL Creatinine 0.67 MG/DL Random Glucose 111 MG/DL Calcium Level 8.7 MG/DL Sodium Level 141 MEQ/L Potassium Level 4.0 MEQ/L Chloride Level 107 MEQ/L Carbon Dioxide Level 29.2 MEQ/L Anion Gap 5 MEQ/L Estimat Glomerular Filtration Rate 122 ML/MIN Troponin I 0.14 NG/ML Assessment and Plan Assessment and Plan Feel troponin demand mediated but will check lexiscan to r/o occult CAD. OK to D /C if negative. Add diltiazem for BP and rhythm control. Has F/U appointment with Dr. Ty Gao,Cliff Brooks MD Jun 29, 2017 09:22
[2017-06-29] MEDS ORDERED: DILTIAZEM-CD 240 MG CAP ER PO SCH (09:30)
[2017-06-29] MEDS ORDERED: REGADENOSON INJ 0.4 MG/5 ML SYR ONE (15:58)
[2017-06-29] MEDS: cloNIDine HCL 0.1 MG TAB PO PRN (17:12)
--- NOTE | 2017-06-29 18:12 | RADRPT ---
EXAM DATE/TIME: 06/29/2017 15:38 [place] COMPARISON: No previous studies available for comparison. INDICATIONS : Chest pain. Atrial fibrillation. DOSE: 31.2 mCi Tc99m Myoview at stress. 10.3 mCi Tc99m Myoview at rest. 0.4 mg Lexiscan STRESS SYMPTOMS: Shortness of breath. EJECTION FRACTION: 55% MEDICAL HISTORY : Hypertension. Hypercholesterolemia. A-Fib SURGICAL HISTORY : Tonsillectomy. Cardiac Ablation 2010. ENCOUNTER: Initial ACUITY: 1 day PAIN SCALE: 0/10 LOCATION: Retrosternal chest TECHNIQUE: The patient underwent pharmacologic stress with infusion of prescribed dose. Continuous ECG tracing was monitored during stress. Gated SPECT imaging was performed after stress and conventional SPECT i maging was performed at rest. The examination was performed on a SPECT/CT scanner, both attenuation and non-corrected datasets were reviewed. FINDINGS: DISTRIBUTION: The maximum perfused segment at stress is in the lateral wall. PERFUSION STUDY: The pattern of perfusion at stress is within normal limits. GATED STUDY: There is intact wall motion and thickening without hypokinetic or dyskinetic segments. CONCLUSION: No reversible perfusion defects are identified to suggest stress-induced myocardial ischemia. RISK CATEGORY: Low (<1% Annual Mortality Rate) Frandy Bangura MD on June 29, 2017 at 18:10 Board Certified Radiologist. This report was verified electronically.
[2017-06-29] MEDS ORDERED: METO-309 PO (18:35)
[2017-06-29] MEDS ORDERED: DILT240C44 PO (18:35)
--- NOTE | 2017-06-29 18:43 | HHI.DS ---
Discharge Summary Admission Date Jun 28, 2017 at 08:56 Discharge Date: Jun 29, 2017 Admitting Diagnosis AF with RVR (1) Atrial fibrillation with RVR Diagnosis: Principal ICD Codes: I48.91 - Unspecified atrial fibrillation Status: Acute (2) Hypertension Diagnosis: Secondary ICD Codes: I10 - Essential (primary) hypertension Status: Chronic Consultants Dr. Gao, Cardiology Procedures 06/28/17 cardioversion Brief History This is a 56 year old male patient with a past medical history of HTN and Atrial Fibrillation S/P ablation [place] [address] Camarena. Patient was hospitalized from 02/03/17 - 02/07/17 for atrial fibrillation and DC'd with Amiodarone and Xarelto. Patient reports that he has been having, "coughing spells," for the past month for which he has been seen by urgent care and the cough was attributed to viral illness. Patient began to have palpiations after a coughing spell. Patient reports that the palpitation feel similar to when he has had Atrial Fibrillation in the past. The palpitations were persistent for 3-4 hours so patient proceeded to the ER. EKG on arrival to the ER revealed Atrial Fibrillation RVR.. Patient denies any associated dizziness or shortness of breath. Patient was given Cardizem bolus, Cardizem drip and amiodarone drip in ER, which did not improve his HR. Patient was seen by Dr. Gao and cardioversion was successfully done. Patient now in SR CBC/BMP: 06/29/17 0447 06/29/17 0519 Significant Findings Laboratory Tests Test 06/28/17 07:45 06/29/17 04:47 06/29/17 05:19 Monocytes (%) (Auto) 10.8 % (0.0-8.0) 12.5 % (0.0-8.0) Prothrombin Time 12.7 SEC (9.8-11.6) Activated Partial Thromboplast Time 31.3 SEC (24.3-30.1) Troponin I 0.18 NG/ML (0.02-0.05) 0.14 NG/ML (0.02-0.05) Platelet Count 141 TH/MM3 (150-450) Random Glucose 111 MG/DL (74-106) Imaging Last Impressions Myocardial Perfusion Scan Nuc Med 06/29/17 0000 Signed Impressions: Service Date/Time: Thursday, June 29, 2017 15:38 - CONCLUSION: No reversible perfusion defects are identified to suggest stress-induced myocardial ischemia. RISK CATEGORY: Low (<1%% Annual Mortality Rate) Frandy Bangura MD Chest X-Ray 06/28/17 0717 Signed Impressions: Service Date/Time: Wednesday, June 28, 2017 07:54 - CONCLUSION: No acute disease. Titus Carrasco MD FACR PE at Discharge GENERAL: This is a well-nourished, well-developed patient, in no apparent distress. CARDIOLOGY: regular rate and rhythm RESPIRATORY: Clear to auscultation. Breath sounds equal bilaterally. GASTROINTESTINAL: Abdomen soft, non-tender, nondistended. MUSCULOSKELETAL: Extremities without clubbing, cyanosis, or edema. No joint tenderness, effusion, or edema noted. No calf tenderness. Negative Homans sign bilaterally. NEUROLOGICAL: Awake and alert. No focal deficits noted. Motor and sensory grossly within normal limits. Five out of 5 muscle strength in all muscle groups. Normal speech. Hospital Course Atrial fibrillation with RVR Patient has had cardiac ablation [address] Camarena and has also had a recent admission 01/2017 due to Atrial Fibrillation RVR Patient on Xarelto 20 mg PO daily will continue Patient was given Cardizem bolus, Cardizem drip and amiodarone drip in ER, which did not improve his HR. Patient was seen by Dr. Gao and cardioversion was successfully done (06/28). Patient now in SR Cardiology increased metoprolol to 50 mg PO BID and added Cardizem 240 mg PO daily continuous telemetry Troponin 0.18, 0.14 likely demand mediated from A Fib RVR patient denies chest pain Lexiscan (06/29) conclusion No reversible perfusion defects are identified to suggest stress- induced myocardial ischemia. Cardiology cleared for DC HTN Continue patient's home Losartan 100mg PO daily cardiology increase Metoprolol to 50 mg PO Q12H and Cardizem 240 mg PO daily Pt Condition on Discharge: Stable Discharge Disposition: Discharge Home Discharge Instructions DIET: Follow Instructions for: Heart Healthy Diet Activities you can perform: Regular-No Restrictions Follow up Referrals: Cardiology - [address] Crawford PCP Follow-up - [address] Espinoza New Medications: Diltiazem CD 24 HR (Diltiazem CD 24 HR) 240 Mg Caper 240 MG PO DAILY for heart rate, #30 CAP 0 Refills Metoprolol Tartrate (Lopressor) 50 Mg Tab 50 MG PO Q12HR for heart rate/ blood pressure, #60 TAB 0 Refills Continued Medications: Losartan (Losartan) 50 Mg Tab 100 MG PO DAILY for Blood Pressure Management, #30 TAB 0 Refills Rivaroxaban (Xarelto) 20 Mg Tab 20 MG PO DAILY for blood thinner, #30 TAB 0 Refills [testosterone] () TOPICAL DAILY Discontinued Medications: Metoprolol Tartrate (Metoprolol Tartrate) 25 Mg Tab 25 MG PO Q12HR for Heart rate/ blood pressure, #60 TAB 0 Refills Additional Information Patient examined. Assessment and plan formulated with Pari Menjivar PA-C. I agree with the above. Pari Menjivar Jun 29, 2017 18:43 Williams Lopez DO Jul 01, 2017 12:14
== END 2017-06-29 20:35 | disposition home or self-care (01) | DRG 310 ==
LOC: NEPE 06:52 → NEDA 08:56 → HCPC 14:55
PROVIDERS: ADMIT Hospitalist; ATTEND Hospitalist
PROC: 5A2204Z Restoration of Cardiac Rhythm, Single (ICD-10-PCS; principal; 2017-06-28)
DX: I48.91 Unspecified atrial fibrillation (principal); I10 Essential (primary) hypertension; I48.92 Unspecified atrial flutter; E78.00 Pure hypercholesterolemia, unspecified; Z79.01 Long term (current) use of anticoagulants
CPT/HCPCS: 71045; 78452; 80048; 83735; 84484; 85025; 85610; 85730; 92960; 93005; 93017; 96365; 96375; 99152; 99153; A9502; J0153; J0282; J2060; J2785; J7050

== ENCOUNTER 2018-01-29 07:05 | Inpatient (IN) ==
[2018-01-29] MEDS ORDERED: Metoprolol Tartrate 25 MG Tablet PO ONE (07:34)
[2018-01-29] MEDS ORDERED: Chlorhexidine Gluconate 2% 1 Pack (2 Cloths) TOPICAL ONE (07:34)
[2018-01-29] MEDS ORDERED: Dexamethasone Inj 20 MG/5 ML Vial IV.PUSH ONE (07:36)
[2018-01-29] MEDS ORDERED: Sodium Chlor 0.9% Inj 73.07 ML, Ropivacaine 0.5% PF Inj 24.63 ML, Ketorolac Inj 30 MG, ... P-ARTICULR SCH ×5 (07:45)
[2018-01-29] MEDS ORDERED: Chlorhexidine 4% Topical 120 APPLIC/120 ML Bottle TOPICAL SCH (07:45)
[2018-01-29] MEDS ORDERED: Sodium Chlor 0.9% Inj 500 ML IV.SIG SCH (08:00)
[2018-01-29] MEDS ORDERED: SODIUM CHLOR 0.9% IV.SIG SCH (08:00)
[2018-01-29] MEDS ORDERED: Vancomycin Inj 1,000 MG in Sodium Chlor 0.9% Inj 250 ML IV.SIG SCH (08:00)
[2018-01-29] MEDS ORDERED: ceFAZolin 2 GM Premix Inj 2 GM/50 ML PIGGYBACK IV.SIG SCH (08:00)
[2018-01-29] MEDS ORDERED: TRANEXAMIC ACID IV.SIG SCH (08:00)
[2018-01-29] MEDS ORDERED: Bupivacaine Liposomal PF 1.3% Inj 20 ML Vial ONE (08:28)
[2018-01-29] MEDS ORDERED: fentaNYL Citrate Inj 100 MCG/2 ML Ampul ONE (09:40)
[2018-01-29] MEDS ORDERED: fentaNYL Citrate Inj 250 MCG/5 ML Ampul ONE (09:41)
[2018-01-29] MEDS ORDERED: Famotidine PF Inj 20 MG/2 ML Vial ONE (09:41)
[2018-01-29] MEDS ORDERED: Lidocaine PF 1% Inj 5 ML Syringe OTHER ONE (10:00)
[2018-01-29] MEDS ORDERED: Glycopyrrolate Inj 1 MG/5 ML Syringe IV.PUSH ONE (10:00)
[2018-01-29] MEDS ORDERED: Neostigmine Inj 5 MG/5 ML Syringe IV.PUSH ONE (10:00)
[2018-01-29] MEDS ORDERED: Post-op Orders (for Pharmacy) OTHER STA (12:19)
[2018-01-29] MEDS ORDERED: SODIUM CHLOR 0.9% IV.SIG ONE (12:19)
[2018-01-29] MEDS ORDERED: TRANEXAMIC ACID IV.SIG ONE (12:19)
[2018-01-29] MEDS ORDERED: Morphine Inj 4 MG/ML Vial IV.PUSH PRN (12:19)
[2018-01-29] MEDS ORDERED: Aluminum/Magnesium/Simethacone Susp 30 ML UDC PO PRN (12:19)
[2018-01-29] MEDS ORDERED: Bisacodyl 10 MG Supp RECTAL PRN (12:19)
--- NOTE | 2018-01-29 12:25 | P.OP ---
Preoperative Diagnosis: Left knee severe arthritis. Left knee retained metallic screws from previous ACL reconstruction Postoperative Diagnosis: Same Date of procedure: 01/29/18 Procedure: Left total knee arthroplasty, with removal of ACL screws Anesthesia: GET[facility] Surgeon: Mat Yost MD Photo Technician: DOMITILA Wills The surgical procedure was assisted by my Advanced Registered Nurse Practitioner. My NET COORDINATOR presence was necessary throughout this case for the manipulation and positioning of the surgical extremity. My NET COORDINATOR was assisting me throughout the duration of this procedure. The skill set of an Advance Registered Nurse Practitioner was medically necessary to complete this procedure. During the surgical case, the surgical instrument mechanic was working at the back table and the Advance Registered Nurse Practitioner was directly assisting me. Operation and Findings: IMPLANTS: DePuy Attune: Patella: size 38. Femur, posterior stabilized size 8. Tibia, rotating platform size 6. Tibial insert, rotating platform, posterior stabilized size 5 mm thickness. ESTIMATED BLOOD LOSS: 125 cc TOURNIQUET TIME: 55 minutes at 250 mmHg pressure. JUSTIFICATION FOR PROCEDURE: The patient has end-stage osteoarthritis to the knee. The patient also has retained hardware from previous ACL reconstruction. There is an attached conservative measures pathway form in the chart that describes the nonoperative measures that were undertaken prior to consideration of surgical management. The patient understood the risks and benefits of surgical management. See my office notes for further details PROCEDURE: The patient was brought back to the operative theatre. Adequate anesthesia was obtained. The patient received intravenous vancomycin and Ancef. The lower extremity was prepped and draped in the usual sterile fashion.The leg was exsanguinated, the tourniquet was raised. A standard anterior incision was performed followed by medial parapatellar arthrotomy was performed. End-stage arthritis was identified. Osteotomy of the patella was performed. We drilled holes for the patella. We trialed the patella component. We placed an intramedullary guide into the distal femur. We ultimately resected 13 mm off of the distal femur in 5 degrees of valgus. The remnants of the ACL and PCL were resected. The ACL had been essentially destroyed from arthritic process. Previous reconstruction was not well identified. We found the screw on the tibia and removed it uneventfully. It had good purchase. No signs of infection were noted. Osteotomy of the proximal tibia was performed, resecting 5 mm off of the medial side. This was done with 3 degrees of posterior slope using an extramedullary guide. The distal end of the guide was placed in the mid aspect of the ankle. The femur was sized, and four chamfer cuts were completed in 3 of external rotation. We then cut the central box in the distal femur to replace the PCL. At this point we identified the other ACL screw which was removed uneventfully. No signs of infection were noted. It was well purchased within the bone. We resected the remnants of the menisci and removed osteophytes off of the femur and tibia. We then trialed the knee. There was tightness of the knee laterally. We tested the knee both in flexion and extension. We recessed the popliteus tendon and portion of the lateral collateral ligament and the iliotibial band. This gave excellent balance of the knee. We punched the tibia for the keel, and then used standard technique to cement in components. Excess cement was removed. We trialed the knee again and the final polyethylene thickness was chosen to provide extension to 0 degrees, and flexion of 140 degrees to gravity. The ligaments were appropriately balanced. Lateral release was necessary to obtain excellent patellofemoral tracking. The tourniquet was released and adequate hemostasis was obtained. An intra- articular injection of a ropivacaine cocktail was injected. The posterior knee was inspected for excess cement, which was removed. The final polyethylene was put into position after thorough irrigation. We then closed deep fascia with a #2 Stratafix followed by skin with 2-0 Vicryl followed by Dermabond. Postop plan is to weight-bear as tolerated. DVT prophylaxis will be performed with [place], JACKI lopez, early mobilization, and Xarelto 10 mg daily while the patient is in the hospital. He will resume his normal dose of Xarelto 20 mg daily when he is discharged home..
[2018-01-29] MEDS ORDERED: *morphine SULFATE 4 MG/ML PERIprocedure ONLY ONE ×3 (12:49→13:02)
[2018-01-29] MEDS ORDERED: HYDROmorphone PF Inj 2 MG/ML Vial ONE ×2 (13:21→13:58)
--- NOTE | 2018-01-29 13:44 | XR ---
EXAM DATE: 01/29/2018 12:19 PM EDT AGE/SEX: 57 years / Male INDICATIONS: Post op left total knee replacement. CLINICAL DATA: This is the patient's initial encounter. Patient reports that signs and symptoms have been present for 1 day and indicates a pain score of 5/10. MEDICAL/SURGICAL HISTORY: . Cardiovascular disease. Hypertension A-fib, Atrial flutter . card iac ablation COMPARISON: No prior exams available for comparison. FINDINGS: AP and lateral views of the knee following arthroplasty reveals a prosthesis in anatomic alignment. F racture is not appreciated. Air is present within the joint. CONCLUSION: Status post total knee arthroplasty. Titus Carrasco MD FACR Electronically signed by: Titus Carrasco MD 01/29/2018 1:43 PM EDT
--- NOTE | 2018-01-29 13:55 | P.DCO ---
- Physical Therapy Physical Therapy: Gait training, Transfer training, bed to chair Knee: Total knee Left Lower Extremity Weight Bearing: Weight bearing as tolerated Left Lower Extremity Range of Motion: Active ROM - Nursing Dressing changes: Do not change dressing Additional instructions: First dressing change in the office. Patient will resume his normal dose of Xarelto 20 mg daily for DVT prophylaxis. - Certification Need for Home Health services: I have seen patient Carlos Walters on 01/29/18. My clinical findings support the need for the requested home health care services because: Need for Home Health Services: Limited ability to care for self, High risk of falls Homebound Certification: I certify that my clinical findings support that this patient is homebound because: Homebound Certification: Post-op weakness, Unsteady gait/balance
[2018-01-29] MEDS: Senna/Docusate Sodium 8.6/50 MG Tablet PO SCH (20:49)
[2018-01-29] MEDS: Metoprolol Tartrate 25 MG Tablet PO SCH (20:49)
[2018-01-29] MEDS: Multivitamin/Minerals Therapeutic Tablet PO SCH (20:49)
[2018-01-29] MEDS ORDERED: Zolpidem Tartrate 5 MG Tablet PO PRN (21:00)
[2018-01-29] MEDS: Sod Chloride 0.9% Inj 1,000 ML IV.CONT SCH (21:21)
[2018-01-30] MEDS: Sod Chloride 0.9% Inj 1,000 ML IV.CONT SCH ×2 (02:07→14:41)
[2018-01-30 05:11] LABS: Hematocrit 37.7 % (39.0-51.0); Hemoglobin 12.9 gm/dL (13.0-17.0)
--- NOTE | 2018-01-30 06:59 | P.PNOP ---
Subjective Interval history: The patient is out of bed in chair. The patient reports minimal pain. The patient has been ambulatory. Physical Exam Vital signs: Vital Signs 01/29/18 07:49 01/29/18 08:17 01/29/18 12:45 Temperature 99 F 97.4 F L Pulse Rate 59 L 56 L 84 Respiratory Rate 20 24 Blood Pressure 147/85 H 165/78 H Pulse Oximetry 98 95 97 01/29/18 13:00 01/29/18 13:15 01/29/18 13:30 Temperature Pulse Rate 75 79 75 Respiratory Rate 13 10 L 10 L Blood Pressure 147/70 H 142/72 H 142/74 H Pulse Oximetry 94 L 97 97 01/29/18 13:45 01/29/18 16:00 01/29/18 19:14 Temperature 97.2 F L Pulse Rate 78 Respiratory Rate 18 18 Blood Pressure 120/67 Pulse Oximetry 96 95 01/29/18 19:33 01/29/18 20:50 01/29/18 23:37 Temperature 97.7 F 97.8 F Pulse Rate 76 78 Respiratory Rate 18 18 18 Blood Pressure 123/68 134/76 Pulse Oximetry 96 94 L 01/30/18 00:10 01/30/18 03:58 Temperature 97.3 F L Pulse Rate 61 Respiratory Rate 18 18 Blood Pressure 130/75 Pulse Oximetry 95 Intake & Output 01/29/18 01/29/18 01/30/18 06:59 18:59 06:59 Intake Total 1100 / 1100 440 / 440 Output Total 550 / 550 Balance 550 / 550 440 / 440 Weight 102.7 kg Intake: IV 600 / 600 200 / 200 Cyklokapron Inj 1,027 MG In NS 200 / 200 Inj 100 ML @ 200 mls/hr IV.SIG ONCE HODAN Rx#:[id number] Vancomycin Inj 1,000 MG In NS 250 / 250 Inj 250 ML @ 250 mls/hr IV.SIG ANTIQUE CLOCKS REPAIRER HODAN Rx#:[id number] Ancef 2 GM Premix Inj 2 gm In 50 / 50 50 ml @ 100 mls/hr IV.SIG ANTIQUE CLOCKS REPAIRER HODAN Rx#:[id number] Ancef Inj 1,000 MG In NS Inj 100 / 100 200 / 200 100 ML @ 200 mls/hr IV.SIG Q6H HODAN Rx#:[id number] Oral 240 / 240 Anesthesia Amount 500 / 500 Output: Urine 400 / 400 Estimated Blood Loss 150 / 150 Other: # Voids 4 # Urine Diapers 2 Date of Last Bowel Movement 01/29/18 01/29/18 # Bowel Movements 0 Weight On Admission 102.7 kg Narrative: The patient's dressing is clean, dry, and intact. EHL/TA/G are intact. 2+ pedal pulse. The patient's calf is soft and nontender. Sensation is intact to light touch distally. Results - Labs CBC & Chem 7: 01/30/18 04:38 Laboratory Results - last 24 hr 01/29/18 01/30/18 07:43 04:38 Hgb 12.9 L Hct 37.7 L Blood Type O Positive Blood Type Recheck Required Antibody Screen Negative - Imaging Impressions Knee X-Ray 01/29/18 12:19 CONCLUSION: Status post total knee arthroplasty. Titus Carrasco MD FACR - Procedures Left total knee arthroplasty Assessment and Plan - Problem List (1) Status post total knee replacement, left Code(s): Z96.652 - Presence of left artificial knee joint Status: Acute (2) Primary localized osteoarthritis of left knee Code(s): M17.12 - Unilateral primary osteoarthritis, left knee Status: Acute - Assessment and Plan POD #1: Left total knee arthroplasty 1. Weightbearing as tolerated on left lower extremity. 2. Xarelto 10 mg tablet daily while in the hospital and then resume Xarelto 20 mg tablet daily when discharged home for DVT prophylaxis. 3. Ice as needed for swelling. 4. Stable per ortho for discharge to home health today. 5. The patient will follow up with Dr. Yost and/or DOMITILA Louis as previously scheduled.
[2018-01-30] MEDS ORDERED: Dexamethasone Inj 20 MG/5 ML Vial IV.PUSH ONE (08:00)
[2018-01-30] MEDS: Senna/Docusate Sodium 8.6/50 MG Tablet PO SCH (08:47)
[2018-01-30] MEDS: Multivitamin/Minerals Therapeutic Tablet PO SCH (08:48)
[2018-01-30] MEDS: Metoprolol Tartrate 25 MG Tablet PO SCH (08:48)
[2018-01-30] MEDS ORDERED: amLODIPine 10 MG Tablet PO SCH (09:00)
[2018-01-30] MEDS ORDERED: Rivaroxaban 10 MG Tablet PO SCH (12:00)
[2018-01-30 12:20] VITALS: BP 130/69; PULSE 73; RESP 23; TEMP 98; O2SAT 94
--- NOTE | 2018-02-03 18:44 | P.DS ---
Date of admission: 01/29/18 07:05 Primary care physician: Itz Gonzalez DO Attending physician on discharge: Mat Yost Anticipated date of discharge: 01/30/18 Brief History from admission: The patient was admitted to the hospital for severe osteoarthritis of the left knee to have a left total knee arthroplasty. DS: Diagnosis - Discharge Diagnosis (1) Status post total knee replacement, left Status: Acute (2) Primary localized osteoarthritis of left knee Status: Acute DS: Summary Hospital Course: The patient was admitted to the hospital for severe osteoarthritis of the left knee to have a left total knee arthroplasty. The patient's surgery went well with no complication. The patient is on a [regular] diet. The patient's DVT prophylaxis includes use of Xarelto. The patient is weightbearing as tolerated. The patient was discharged [home with home health] and will follow up in the office with Dr. Yost and/or DOMITILA Louis as previously scheduled. - Time Spent with Patient Total time spent providing and/or coordinating discharge services: Greater than 30 minutes - Quality: VTE Deep Vein Thrombosis/Pulmonary Embolism Present on Admission: No Exam Narrative: The patient's dressing is clean, dry, and intact. EHL/TA/G are intact. 2+ pedal pulse. The patient's calf is soft and nontender. Sensation is intact to light touch distally. Results Procedures completed during hospitalization: Left total knee arthroplasty - Impressions ITS Impressions Knee X-Ray 01/29/18 12:19 CONCLUSION: Status post total knee arthroplasty. Titus Carrasco MD FACR Discharge Plan - Discharge Disposition Patient Disposition: W/Home Health Service - Discharge Condition Condition: Stable - Discharge Order Discharge Orders: Discharge Order (Routine); Ordered 01/29/18 Ordered By: Brady Cruz - Discharge Details Anticipated Discharge Date: 01/30/18 - Physicians Team Primary Care Provider: Itz Gonzalez Attending Provider: Mat Yost Other Providers: [facility] - Rxs /Orders / Referrals /Forms Prescriptions: Continue amlodipine 10 mg Tablet 10 mg PO DAILY colchicine 0.6 mg Tablet 0.6 mg PO DAILY PRN (Reason: Acute Pain) losartan 100 mg Tablet 100 mg PO DAILY metoprolol tartrate 25 mg Tablet 25 mg PO BID rivaroxaban [Xarelto] 20 mg Tablet 20 mg PO DAILY Ambulatory Orders / Order Sets / DME: Adjustable Commode 3-in-1 (1 each) (Routine) Location: Determined by Patient Ordered By: Brady Cruz CPM - Continuous Passive Motion Machine (1 each) (Routine) Location: Determined by Patient Ordered By: Brady Cruz Walker With Front Wheels (1 each) (Routine) Location: Determined by Patient Ordered By: Brady Cruz Referrals: Mat Yost MD [Physician] - See Instructions (F/U in the office with Dr. Yost or DOMITILA Louis as previously scheduled.) Itz Gonzalez DO [Primary Care Provider] - See Instructions - Discharge Instructions Patient Printed Instructions: How to Choose and Use a Walker (GEN), JACKI Hose ( DC), Continuous Passive Motion Machine (DC), Knee Replacement (DC) Additional Instructions: Full weight bearing Jacki hose Follow up with Dr Yost as directed
== END 2018-01-30 15:05 | disposition home health service (06) ==
LOC: HSDI 07:05 → N06 14:11
PROVIDERS: ADMIT Orthopaedic Surgery; ATTEND Orthopaedic Surgery